=== PATIENT | female | born 1950 | race Caucasian/White ===

== ENCOUNTER 2016-05-29 10:43 | Inpatient (IN) | payer MEDICARE ==
[2016-05-29] MEDS ORDERED: SODIUM CHLORIDE 0.9% 10 ML FLUSH FLUSH PRN (11:04)
[2016-05-29 11:09] LABS: ABG Draw Site Right Radial; ABG Draw Tech SI; ALLEN'S TEST PASS; BEb -2.8 (+/- 2); TCO2 26.8 MMOL/L (23-27)
[2016-05-29 11:19] LABS: AUTOMATED BASOPHIL 0.8 % (0-2); AUTOMATED EOSINOPHIL 0.5 % (0-5); AUTOMATED LYMPH 10.7 % (17-44); AUTOMATED MONOCYTE 1.7 % (3-10); AUTOMATED NEUTROPHIL 86.3 % (45-76); MPV 10.1 fL (7.4-10.4)
[2016-05-29 11:27] LABS: BLOOD UREA NITROGEN 22 MG/DL (7-17); CALCIUM 9.1 MG/DL (8.4-10.2); CALCULATED OSMOLALITY 278 MOs/Kg (270-290); CHLORIDE 105 mEq/L (98-107); GLUCOSE 163 MG/DL (70-99); SODIUM LEVEL 141 mEq/L (137-146); TOTAL PROTEIN 7.9 G/DL (6.3-8.2)
--- NOTE | 2016-05-29 11:31 | EDPRACDOC ---
- General Information Information Source: Patient - History of Present Illness Onset: THIS AM Exact Onset of Symptoms: Unknown Symptoms began: At Night Duration: Since Onset Symptoms Currently: Reports: Still Present Altered Quality: Reports: Change in Behavior, Confusion Altered Severity: Reports: Unable to care for self Recent Symptoms of: Reports: None Relevant History: Reports: None Other History: PT PRESENTS TODAY WITH AMS. PT WITH DAUGHTER WHO PROVIDES MOST OF THE HISTORY BECAUSE ALL THE PT WILL STATE TO ME IS "I JUST CAN'T DO IT ANY MORE, I'M JUST SO WEAK". DAUGHTER STATES THAT PT WAS "JUST FINE" YESTERDAY AND THIS MORNING PT CALLED THE DAUGHTER WHO STATES PT WAS "JUST RAMBLING". DAUGHTER STATES PT HAS PMH OF CHF, HTN, 1 STENT. PT CURRENTLY ALERT, BUT SEEMS SOMEWHAT CONFUSED. <Hiwot Bunch - Last Filed: 05/29/16 12:27> <Oscar Bruce - Last Filed: 05/29/16 12:40> - General Information Chief Complaint: Altered Mental Status Stated Complaint: NAUSEA/ WEAKNESS Time Seen by Provider: 05/29/16 10:54 Home Medications: Home Medications Carvedilol [Coreg] 6.25 mg PO BID 10/28/14 Lisinopril [Zestril] 20 mg PO DAILY 10/28/14 Aspirin (Enteric Coated) [Halfprin] 81 mg PO DAILYWM #100 tablet 10/30/14 Apixaban [Eliquis] 2.5 mg PO BID 05/29/16 Furosemide [Lasix] 20 mg PO DAILY 05/29/16 POTASSIUM CHLORIDE Tablet [K-DUR 20 mEq Tablet*] 20 meq PO BID 05/29/16 Simvastatin 5 mg PO HS 05/29/16 Allergies/Adverse Reactions: Allergies Allergy/AdvReac Type Severity Reaction Status Date / Time No Known Allergies Allergy Verified 05/29/16 10:50 ED Past Medical History - History Reviewed Yes Nurses notes reviewed and agree except as marked - Patient Medical History Cardiac History: Reports: Atrial Fibrillation (History of.), Hypertension, Congestive Heart Failure, Cardiac Catheterization (stents x 2) Respiratory History: Reports: Pneumonia (Had pneumonia within the last 2 years.) Psychological History: Denies: Depression, Substance Use Disorder Systemic History: Denies: Anemia Surgical History: Reports: Cardiac Catheterization (stents x 2) - Family Medical History Reports: Hypertension (Brother, father), Cancer (Sister), Cardiac Disorders ( Father, brother) - Social Medical History Smoking Status: Heavy tobacco smoker (5 or more cigarettes/day or daily pipe/ cigar) Social History: Denies: Substance Use Disorder <Hiwot Bunch - Last Filed: 05/29/16 12:27> EDM Review of Systems - Review of Systems ROS Negative Except as Marked: Yes All systems reviewed and were negative except as marked ROS Unobtainable: Yes Review of systems cannot be obtained due to the patient's medical condition, Yes Hx Limited due to age/level of understanding of patient Constitutional: Fatigue, Weakness Respiratory: Shortness of Breath Cardiovascular: No Symptoms Reported Gastrointestinal: Nausea Genitourinary: No Symptoms Reported Neurological: Headache, Weakness, Memory Changes, Changes in Orientation Musculoskeletal: No Symptoms Reported Integumentary: No Symptoms Reported <iHwot Bunch - Last Filed: 05/29/16 12:27> - Physical Exam Constitutional: Alert, Confused Oriented to: Not Oriented Last recorded Vital Signs: Last Vital Signs Temp 97.4 F L 05/29/16 10:50 Pulse 95 05/29/16 10:50 Resp 18 05/29/16 11:00 BP 156/103 H 05/29/16 10:50 Pulse Ox 78 L 05/29/16 10:50 Oxygen Pulse Oxygen Saturation 78 O2 Device Oxygen Flow Rate Fraction of Inspired Oxygen ( FIO2) - HEENT Head: Normal Eye Exam: Normal Neck: Normal, Denies Pain, Midline - Respiratory/Cardiovascular Respiratory: Normal - CTA Cardiovascular: Normal - GI Palpation: Normal Tenderness: Non tender - Musculoskeletal Back: Normal Extremities: Normal - Integumentary Skin: Cool Lymphatics: Normal - Neurologic Cerebellar: Unable to Test <Hiwot Bunch - Last Filed: 05/29/16 12:27> - Physical Exam Last recorded Vital Signs: Last Vital Signs Temp 97.4 F L 05/29/16 10:50 Pulse 89 05/29/16 12:37 Resp 15 05/29/16 12:37 BP 154/110 H 05/29/16 12:37 Pulse Ox 91 05/29/16 12:37 Oxygen Pulse Oxygen Saturation 91 O2 Device BiPAP Oxygen Flow Rate Fraction of Inspired Oxygen ( 35 FIO2) <Oscar Bruce - Last Filed: 05/29/16 12:40> - Re-evaluation Re-evaluation 1 Re-evaluation Time: 11:44 DAUGHTER STATES THAT PT HAS WORSENED; CT MADE PRIORITY; PT MUMBLING INCOHERENTLY. - Results 05/29/16 10:55 05/29/16 10:55 WBC 10.2 xk/uL (3.8-10.8) 05/29/16 10:55 RBC 5.47 xM/uL (4.20-5.40) H 05/29/16 10:55 Hgb 16.3 g/dL (12.0-16.0) H 05/29/16 10:55 Hct 49.0 % (36-47) H 05/29/16 10:55 MCV 90 fL (81-99) 05/29/16 10:55 MCH 29.9 pg (27-32) 05/29/16 10:55 MCHC 33.4 g/dl (33-36) 05/29/16 10:55 RDW 13.9 % (11.5-14.5) 05/29/16 10:55 Plt Count 179 xk/uL (130-400) 05/29/16 10:55 MPV 10.1 fL (7.4-10.4) 05/29/16 10:55 Neut % (Auto) 86.3 % (45-76) H 05/29/16 10:55 Lymph % (Auto) 10.7 % (17-44) L 05/29/16 10:55 [place] % (Auto) 1.7 % (3-10) L 05/29/16 10:55 Eos % (Auto) 0.5 % (0-5) 05/29/16 10:55 Baso % (Auto) 0.8 % (0-2) 05/29/16 10:55 Absolute Neuts (auto) 8.77 xk/uL (1.7-8.2) H 05/29/16 10:55 Absolute Lymphs (auto) 1.02 xk/uL (0.65-4.75) 05/29/16 10:55 Puncture Site Right radial 05/29/16 11:04 pH 7.260 pH UNITS (7.35-7.45) L 05/29/16 11:04 pCO2 56.0 mmHg (35-45) H 05/29/16 11:04 pO2 42.0 mmHg (80-100) L* 05/29/16 11:04 HCO3 25.1 MMOL/L (22-26) 05/29/16 11:04 Total CO2 26.8 MMOL/L (23-27) 05/29/16 11:04 Base Excess -2.8 (+/- 2) L 05/29/16 11:04 FiO2 % 21% 05/29/16 11:04 Specimen Drawn By Si 05/29/16 11:04 Lab Results 05/29/16 05/29/16 11:04 10:55 WBC 10.2 RBC 5.47 H Hgb 16.3 H Hct 49.0 H MCV 90 MCH 29.9 MCHC 33.4 RDW 13.9 Plt Count 179 MPV 10.1 Neut % (Auto) 86.3 H Lymph % (Auto) 10.7 L [place] % (Auto) 1.7 L Eos % (Auto) 0.5 Baso % (Auto) 0.8 Absolute Neuts (auto) 8.77 H Absolute Lymphs (auto) 1.02 Puncture Site Right radial pH 7.260 L pCO2 56.0 H pO2 42.0 L* HCO3 25.1 Total CO2 26.8 Base Excess -2.8 L FiO2 % 21% Specimen Drawn By Si - EKG EKG #1 EKG Time: 10:58 -: Yes EKG interpreted by nj Rate: bpm: 84 Corder: Normal Rhythm: Afib Block: RBBB Hypertrophy: None ST: Normal <Hiwot Bunch - Last Filed: 05/29/16 12:27> - Results 05/29/16 10:55 05/29/16 10:55 WBC 10.2 xk/uL (3.8-10.8) 05/29/16 10:55 RBC 5.47 xM/uL (4.20-5.40) H 05/29/16 10:55 Hgb 16.3 g/dL (12.0-16.0) H 05/29/16 10:55 Hct 49.0 % (36-47) H 05/29/16 10:55 MCV 90 fL (81-99) 05/29/16 10:55 MCH 29.9 pg (27-32) 05/29/16 10:55 MCHC 33.4 g/dl (33-36) 05/29/16 10:55 RDW 13.9 % (11.5-14.5) 05/29/16 10:55 Plt Count 179 xk/uL (130-400) 05/29/16 10:55 MPV 10.1 fL (7.4-10.4) 05/29/16 10:55 Neut % (Auto) 86.3 % (45-76) H 05/29/16 10:55 Lymph % (Auto) 10.7 % (17-44) L 05/29/16 10:55 [place] % (Auto) 1.7 % (3-10) L 05/29/16 10:55 Eos % (Auto) 0.5 % (0-5) 05/29/16 10:55 Baso % (Auto) 0.8 % (0-2) 05/29/16 10:55 Absolute Neuts (auto) 8.77 xk/uL (1.7-8.2) H 05/29/16 10:55 Absolute Lymphs (auto) 1.02 xk/uL (0.65-4.75) 05/29/16 10:55 PT 11.2 SEC (9.2-11.2) 05/29/16 10:55 INR 1.1 05/29/16 10:55 APTT 24.6 SEC (22-35) 05/29/16 10:55 Puncture Site Right radial 05/29/16 11:04 pH 7.260 pH UNITS (7.35-7.45) L 05/29/16 11:04 pCO2 56.0 mmHg (35-45) H 05/29/16 11:04 pO2 42.0 mmHg (80-100) L* 05/29/16 11:04 HCO3 25.1 MMOL/L (22-26) 05/29/16 11:04 Total CO2 26.8 MMOL/L (23-27) 05/29/16 11:04 Base Excess -2.8 (+/- 2) L 05/29/16 11:04 FiO2 % 21% 05/29/16 11:04 Specimen Drawn By Si 05/29/16 11:04 Sodium 141 mEq/L (137-146) 05/29/16 10:55 Potassium 4.3 mEq/L (3.5-5.1) 05/29/16 10:55 Chloride 105 mEq/L (98-107) 05/29/16 10:55 Carbon Dioxide 27 mMOL/L (22-33) 05/29/16 10:55 Anion Gap 13 mEq/L (8-16) 05/29/16 10:55 BUN 22 MG/DL (7-17) H 05/29/16 10:55 Creatinine 1.00 MG/DL (0.52-1.04) 05/29/16 10:55 Estimated GFR (MDRD) 55 mL/min (>=60) L 05/29/16 10:55 Glucose 163 MG/DL (70-99) H 05/29/16 10:55 Calculated Osmolality 278 MOs/Kg (270-290) 05/29/16 10:55 Lactic Acid 0.7 mEq/L (0.7-2.1) 05/29/16 10:55 Calcium 9.1 MG/DL (8.4-10.2) 05/29/16 10:55 Total Bilirubin 1.6 MG/DL (0.2-1.3) H 05/29/16 10:55 AST 52 IU/L (14-36) H 05/29/16 10:55 ALT 47 IU/L (9-52) 05/29/16 10:55 Alkaline Phosphatase 81 IU/L (55-165) 05/29/16 10:55 Troponin I < 0.01 ng/mL (<.04) 05/29/16 10:55 Hcr-C-Qcpxvqlrpte Pept 4330 pg/mL (0-900) H 05/29/16 10:55 Total Protein 7.9 G/DL (6.3-8.2) 05/29/16 10:55 Albumin 4.3 G/DL (3.5-5.0) 05/29/16 10:55 Lab Results 05/29/16 05/29/16 05/29/16 11:04 10:55 10:55 WBC RBC Hgb Hct MCV MCH MCHC RDW Plt Count MPV Neut % (Auto) Lymph % (Auto) [place] % (Auto) Eos % (Auto) Baso % (Auto) Absolute Neuts (auto) Absolute Lymphs (auto) PT INR APTT Puncture Site Right radial pH 7.260 L pCO2 56.0 H pO2 42.0 L* HCO3 25.1 Total CO2 26.8 Base Excess -2.8 L FiO2 % 21% Specimen Drawn By Si Sodium Potassium Chloride Carbon Dioxide Anion Gap BUN Creatinine Estimated GFR (MDRD) Glucose Calculated Osmolality Lactic Acid 0.7 Calcium Total Bilirubin AST ALT Alkaline Phosphatase Troponin I Cvn-K-Rpnuzenzujj Pept 4330 H Total Protein Albumin 05/29/16 05/29/16 05/29/16 10:55 10:55 10:55 WBC 10.2 RBC 5.47 H Hgb 16.3 H Hct 49.0 H MCV 90 MCH 29.9 MCHC 33.4 RDW 13.9 Plt Count 179 MPV 10.1 Neut % (Auto) 86.3 H Lymph % (Auto) 10.7 L [place] % (Auto) 1.7 L Eos % (Auto) 0.5 Baso % (Auto) 0.8 Absolute Neuts (auto) 8.77 H Absolute Lymphs (auto) 1.02 PT 11.2 INR 1.1 APTT 24.6 Puncture Site pH pCO2 pO2 HCO3 Total CO2 Base Excess FiO2 % Specimen Drawn By Sodium 141 Potassium 4.3 Chloride 105 Carbon Dioxide 27 Anion Gap 13 BUN 22 H Creatinine 1.00 Estimated GFR (MDRD) 55 L Glucose 163 H Calculated Osmolality 278 Lactic Acid Calcium 9.1 Total Bilirubin 1.6 H AST 52 H ALT 47 Alkaline Phosphatase 81 Troponin I < 0.01 Hme-S-Dfgrtkgpana Pept Total Protein 7.9 Albumin 4.3 <Oscar Bruce - Last Filed: 05/29/16 12:40> - Departure Disposition: Admit IP To This Hospital <Hiwot Bunch - Last Filed: 05/29/16 12:27> - Departure Yes I personally saw and evaluated the patient. Disposition: Admit IP To This Hospital Decision to Admit Time: 12:40 Decision to admit date: 05/29/16 Decision to admit: from ED - Physician Consulted Hospitalist Time Called: 12:40 Provider Called: Dima Haider Time Auto Custom[employer] Painter Returned Call: 12:40 <Oscar Bruce - Last Filed: 05/29/16 12:40> - Departure Condition: Fair Final Diagnosis: Altered mental status, COPD with exacerbation CHF (congestive heart failure) Qualifiers: Congestive heart failure type: combined Congestive heart failure chronicity: acute on chronic Qualified Code(s): I50.43 - Acute on chronic combined systolic (congestive) and diastolic (congestive) heart failure Respiratory failure Qualifiers: Chronicity: acute Respiratory failure complication: hypoxia and hypercapnia Qualified Code(s): J96.01 - Acute respiratory failure with hypoxia
[2016-05-29 11:36] LABS: PARTIAL THROMB. TIME 24.6 SEC (22-35); PT-INR 1.1
[2016-05-29] MEDS ORDERED: ONDANSETRON HCL 4 MG/2 ML VIAL IV ONE (11:38)
--- NOTE | 2016-05-29 12:01 | DIRPT ---
CLINICAL DATA: Altered mental status for 1 day. History of previous CVA, per patient. EXAM: CT HEAD WITHOUT CONTRAST TECHNIQUE: Contiguous axial images were obtained from the base of the skull through the vertex without intravenous contrast. COMPARISON: None. FINDINGS: There is generalized brain atrophy with commensurate dilatation of the ventricles and sulci. Patchy areas of low density within the bilateral periventricular and subcortical white matter regions are most compatible with sequela of chronic small vessel ischemia. Old infarcts noted within the bilateral lower occipital lobe regions with associated encephalomalacia. There is no mass, hemorrhage, edema or other evidence of acute parenchymal abnormality. No extra-axial hemorrhage. No osseous abnormality seen. Visualized upper paranasal sinuses are clear. Mastoid air cells are clear. There are chronic calcified atherosclerotic changes of the large vessels at the skull base. Superficial soft tissues are unremarkable. IMPRESSION: 1. Atrophy and chronic ischemic changes, as detailed above. 2. No evidence of acute intracranial abnormality. No intracranial mass, hemorrhage or edema. Electronically Signed By: Jeison Ramirez M.D. On: 05/29/2016 11:59
[2016-05-29] MEDS ORDERED: FUROSEMIDE 40 MG/4 ML VIAL IV ONE (12:05)
[2016-05-29] MEDS ORDERED: MORPHINE 4 MG/ML INJECTION IV ONE (12:05)
[2016-05-29] MEDS ORDERED: METHYLPREDNISOLONE 125 MG/2 ML VIAL IV ONE (12:05)
--- NOTE | 2016-05-29 12:31 | DIRPT ---
CLINICAL DATA: Patient with chest pain. Nausea. EXAM: PORTABLE CHEST 1 VIEW COMPARISON: Chest radiograph 02/04/2015. FINDINGS: Monitoring leads overlie the patient. Stable cardiomegaly. Interval development of bilateral interstitial pulmonary opacities. No pleural effusion or pneumothorax. IMPRESSION: Cardiomegaly and mild interstitial pulmonary edema. Electronically Signed By: Greg Bhakta M.D. On: 05/29/2016 12:28
[2016-05-29] MEDS ORDERED: DOCUSATE-SENNA CONCENTRATE TAB PO PRN (14:00)
[2016-05-29] MEDS ORDERED: D5-1/2NS/KCL 20 mEq 1,000 ML IV SCH (14:00)
[2016-05-29] MEDS ORDERED: BENZONATATE 100 MG PERLES PO PRN (14:00)
[2016-05-29] MEDS ORDERED: MORPHINE 2 MG/ML INJECTION IV PRN (14:00)
[2016-05-29] MEDS ORDERED: NITROGLYCERINE 0.4 MG TAB SL PRN (14:00)
[2016-05-29] MEDS ORDERED: PROMETHAZINE 25 MG/ML VIAL IV PRN (14:00)
[2016-05-29] MEDS ORDERED: ACETAMINOPHEN 650 MG SUPP PR PRN (14:00)
[2016-05-29] MEDS ORDERED: BISACODYL 10 MG SUPP PR PRN (14:00)
[2016-05-29] MEDS ORDERED: SIMETHICONE 80 MG TAB PO PRN (14:00)
[2016-05-29] MEDS ORDERED: Albuterol/Ipratropium Neb 3 ML NEB NEB PRN (14:00)
[2016-05-29] MEDS ORDERED: GUAIFENESIN 200 MG/10 ML UDC PO PRN (14:00)
[2016-05-29] MEDS ORDERED: Pharmacy Order Set Alert SCH (14:00)
[2016-05-29] MEDS ORDERED: ENALAPRILAT 1.25 MG/ML VIAL IV PRN (14:13)
[2016-05-29 14:17] LABS: ALL NEG? NO
--- NOTE | 2016-05-29 14:19 | HISTPHYS ---
- Medical History Cardiac History: Reports: Atrial Fibrillation (History of.), Hypertension, Congestive Heart Failure, Cardiac Catheterization (stents x 2) Respiratory History: Reports: Pneumonia (Had pneumonia within the last 2 years.) Systemic History: Denies: Anemia Psychological History: Denies: Depression, Substance Use Disorder - Surgical History Reports: Cardiac Catheterization (stents x 2) - Medictions/Allergies Allergies lorazepam [From Ativan] Allergy (Verified 05/29/16 14:18) Agitation Home Medications Carvedilol [Coreg] 6.25 mg PO BID 10/28/14 Lisinopril [Zestril] 20 mg PO DAILY 10/28/14 Aspirin (Enteric Coated) [Halfprin] 81 mg PO DAILYWM #100 tablet 10/30/14 Apixaban [Eliquis] 2.5 mg PO BID 05/29/16 Furosemide [Lasix] 20 mg PO DAILY 05/29/16 POTASSIUM CHLORIDE Tablet [K-DUR 20 mEq Tablet*] 20 meq PO BID 05/29/16 Simvastatin 5 mg PO HS 05/29/16 - Family History Reports: Hypertension (Brother, father), Cancer (Sister), Cardiac Disorders ( Father, brother) - Social History Smoking Status: Heavy tobacco smoker (5 or more cigarettes/day or daily pipe/ cigar) Social History: Denies: Substance Use Disorder - Physical Exam Vital Signs: Initial Vitals Temperature 97.4 F L 05/29/16 10:50 Pulse Rate 95 05/29/16 10:50 Respiratory Rate 22 05/29/16 10:50 Blood Pressure 156/103 H 05/29/16 10:50 Pulse Oxygen Saturation 78 L 05/29/16 10:50 - Focused CV Perfusion Exam Vital Signs: Last Vital Signs Temp 97.4 F L 05/29/16 10:50 Pulse 89 05/29/16 12:37 Resp 15 05/29/16 12:37 BP 154/110 H 05/29/16 12:37 Pulse Ox 91 05/29/16 12:37
[2016-05-29 14:32] LABS: MDMA* NEG (NEGATIVE); METHAMPHETAMINES NEG (NEGATIVE); OXYCODONE NEG (NEGATIVE)
[2016-05-29 14:37] LABS: LEUKOCYTES/URINE NEG (NEGATIVE); NITRITE/URINE NEG (NEGATIVE); RBC/URINE 0-2 (0-5); URINE OCCULT BLOOD 1+ (NEG/TRACE); WBC/URINE 0-2 (0-5)
[2016-05-29] MEDS ORDERED: ENOXAPARIN 80 MG/0.8 ML PFS SQ SCH (15:00)
[2016-05-29] MEDS ORDERED: Pharmacy Review for Metformin - IV Contrast Given SCH ×2 (15:00→20:00)
[2016-05-29] MEDS ORDERED: Enoxaparin 1 mg per kg per dose SQ SCH (15:00)
[2016-05-29] MEDS: FUROSEMIDE 40 MG/4 ML VIAL IV SCH (15:29)
[2016-05-29] MEDS: NICOTINE 21 MG PATCH TOP SCH (15:29)
[2016-05-29] MEDS: Albuterol/Ipratropium Neb 3 ML NEB NEB SCH ×2 (15:32→19:28)
[2016-05-29] MEDS: METOPROLOL 5 MG/5 ML SDV IV SCH ×2 (17:07→23:05)
[2016-05-29] MEDS: D5-1/2NS/KCL 20 mEq 1,000 ML IV SCH (17:07)
[2016-05-29] MEDS ORDERED: Vaccine Screening Complete SCH (18:00)
[2016-05-29] MEDS: ONDANSETRON HCL 4 MG/2 ML VIAL IV PRN (18:33)
--- NOTE | 2016-05-29 19:15 | HISTPHYS ---
- Chief Complaint Altered mental status - History of Present Illness The patient is a 65-year-old white female with a history of coronary artery disease AFib hypertension and ongoing smoking who was last seen on the night prior to admission. She was at her usual state of health at that time. On the morning of admission the patient is daughter states that the patient called her by telephone but was babbling incoherently. She went her mother's house which is right next door and her mother was dressed but very confused. Most of what she said did not make sense. She has had no recent illness or shortness of breath. Patient's daughter states that the patient looked flu-like, although she has had no recent illness or fever. On arrival in the emergency department the patient's ABG showed a PO2 of 42 and sats were 78% on room air. We rest see the patient for respiratory failure unknown etiology. - Medical History Cardiac History: Reports: Atrial Fibrillation (History of.), Hypertension, Congestive Heart Failure, Cardiac Catheterization (stents x 2), Hypercholesterolemia Respiratory History: Reports: Pneumonia (Had pneumonia within the last 2 years.) GI/ History: Reports: Gastroesophageal Reflux (h/o H pylori) Musculoskeletal History: Reports: No Significant History Systemic History: Denies: Anemia, Diabetes, Hypothyroidism Neurological History: Denies: Seizures, Dementia Psychological History: Denies: Depression, Substance Use Disorder - Surgical History Reports: Cardiac Catheterization (stents x 2) - Medictions/Allergies Allergies lorazepam [From Ativan] Allergy (Verified 05/29/16 14:18) Agitation Current Medication List: Reviewed Home Medications Carvedilol [Coreg] 6.25 mg PO BID 10/28/14 Lisinopril [Zestril] 20 mg PO DAILY 10/28/14 Aspirin (Enteric Coated) [Halfprin] 81 mg PO DAILYWM #100 tablet 10/30/14 Apixaban [Eliquis] 2.5 mg PO BID 05/29/16 Furosemide [Lasix] 20 mg PO DAILY 05/29/16 POTASSIUM CHLORIDE Tablet [K-DUR 20 mEq Tablet*] 20 meq PO BID 05/29/16 Simvastatin 5 mg PO HS 05/29/16 - Family History Reports: Hypertension (Brother, father), Cancer (Sister), Cardiac Disorders ( Father, brother) - Social History Travel Outside of [place] in the Last 3 Months?: No Lives: Alone (daughter lives next door) Smoking Status: Heavy tobacco smoker (5 or more cigarettes/day or daily pipe/ cigar) Social History: Denies: Alcohol Use, Substance Use Disorder - Review of Systems Yes Review of systems cannot be obtained due to the patient's medical condition (Information marked is from daughter) Constitutional: negative: Chills, Fever, Fatigue, Weight loss Eyes: negative: Blurred Vision Ears: No Symptoms Reported Nose: No Symptoms Reported Mouth: No Symptoms Reported Throat/Neck: No Symptoms Reported Respiratory: No Symptoms Reported. negative: Shortness of Breath Cardiovascular: No Symptoms Reported Gastrointestinal: Nausea (reported today.), Abdominal Pain (at times per daughter) Genitourinary: No Symptoms Reported Neurological: Other (chronic sleep problem). negative: Dizziness, Gait Difficulty, Headache Musculoskeletal:: No Symptoms Reported Integumentary: No Symptoms Reported Allergic/Immunologic: No Symptoms Reported Hematologic: No Symptoms Reported Endocrine: No Symptoms Reported Psychiatric: No Symptoms Reported - Physical Exam Vital Signs: Initial Vitals Temperature 97.4 F L 05/29/16 10:50 Pulse Rate 95 05/29/16 10:50 Respiratory Rate 22 05/29/16 10:50 Blood Pressure 156/103 H 05/29/16 10:50 Pulse Oxygen Saturation 78 L 05/29/16 10:50 Constitutional: Decreased Consciousness (opens eyes and answers questions then goes back to sleep.) Oriented to: Person - HEENT Head: Normal. negative: Abrasion, Laceration Eye: negative: Conjunctival Injection, Scleral Icterus Oropharynx: Other (unable to evaluate due to bipap) Tympanic Membrane: Normal ENT EAC: Other (unable to evaluate due to bipap) Nose: Other (unable to evaluate due to bipap) Respiratory: Rales (faint), Excursion (decreased) Cardiovascular: Irregular - GI Auscultation: Normal Palpation: Normal. negative: Enlarged liver, Enlarged spleen Tenderness: Non tender Rectal Exam: Deferred - Exam Deferred: Yes - Musculoskeletal Back: negative: CVA Tenderness Extremities: Clubbing (mild in fingers) Spine: non-tender - Integumentary Skin: Warm, Dry Lymphatics: negative: Cervical Adenopathy, Supraclavicular Adenopathy - Neurologic Memory Impaired: Unable to Test Motor Function: Normal (she will move upper and lower extremities on command) Cranial Nerve: Unable to Test Cerebellar: Unable to Test Mood Description: Agitated Thought: Other (unable to test due to bipap.) - Focused CV Perfusion Exam Vital Signs: Last Vital Signs Temp 96.3 F L 05/29/16 16:36 Pulse 100 05/29/16 17:54 Resp 18 05/29/16 16:36 BP 141/100 05/29/16 16:36 Pulse Ox 94 05/29/16 16:36 - Lab Results Laboratory Tests 05/29/16 05/29/16 05/29/16 10:55 10:55 10:55 WBC 10.2 RBC 5.47 H Hgb 16.3 H Hct 49.0 H MCV 90 Neut % (Auto) 86.3 H Lymph % (Auto) 10.7 L [place] % (Auto) 1.7 L PT 11.2 INR 1.1 APTT 24.6 Puncture Site pH pCO2 pO2 HCO3 Total CO2 Base Excess FiO2 % Sodium 141 Potassium 4.3 Chloride 105 Carbon Dioxide 27 Anion Gap 13 BUN 22 H Creatinine 1.00 Estimated GFR (MDRD) 55 L Glucose 163 H Calculated Osmolality 278 Lactic Acid Calcium 9.1 Total Bilirubin 1.6 H AST 52 H ALT 47 Alkaline Phosphatase 81 Troponin I < 0.01 Fmh-Y-Jmxhmmejeqj Pept Total Protein 7.9 Albumin 4.3 05/29/16 05/29/16 05/29/16 10:55 10:55 11:04 WBC RBC Hgb Hct MCV Neut % (Auto) Lymph % (Auto) [place] % (Auto) PT INR APTT Puncture Site Right radial pH 7.260 L pCO2 56.0 H pO2 42.0 L* HCO3 25.1 Total CO2 26.8 Base Excess -2.8 L FiO2 % 21% Sodium Potassium Chloride Carbon Dioxide Anion Gap BUN Creatinine Estimated GFR (MDRD) Glucose Calculated Osmolality Lactic Acid 0.7 Calcium Total Bilirubin AST ALT Alkaline Phosphatase Troponin I Nub-Q-Uleecdfbvyh Pept 4330 H Total Protein Albumin - Diagnostic Findings Exam(s): [id number] RAD/DG CHEST PORTABLE CLINICAL DATA: Patient with chest pain. Nausea. EXAM: PORTABLE CHEST 1 VIEW COMPARISON: Chest radiograph 02/04/2015. FINDINGS: Monitoring leads overlie the patient. Stable cardiomegaly. Interval development of bilateral interstitial pulmonary opacities. No pleural effusion or pneumothorax. IMPRESSION: Cardiomegaly and mild interstitial pulmonary edema. Electronically Signed By: Greg Yony M.D. Non contrast head CT showed atrophy and ischemic change but no acute intracranial abnormality - Assessment (1) Respiratory failure with hypoxia J96.91 - RESPIRATORY FAILURE, UNSPECIFIED WITH HYPOXIA Acute Present on Admission: Yes Qualifiers: Chronicity: acute on chronic Qualified Code(s): J96.21 - Acute and chronic respiratory failure with hypoxia This is sudden onset for this patient. She will have cardiac enzymes drawn. She has been placed on BiPAP. Blood cultures and urine cultures have been obtained. IV antibiotics were given for presumptive diagnosis of pneumonia. IV steroids. Two sets of troponins have been done. I have ordered a CTA of her chest to evaluate for PE although she is on Eliquis. (2) Altered mental status R41.82 - ALTERED MENTAL STATUS, UNSPECIFIED Acute Present on Admission: Yes Likely due to extreme hypoxia. No history of psychiatric illness. (3) COPD with exacerbation J44.1 - CHRONIC OBSTRUCTIVE PULMONARY DISEASE W (ACUTE) EXACERBATION Acute Present on Admission: Yes supplemental oxygen, nebulized medications, steroids. (4) Acute on chronic systolic and diastolic heart failure, NYHA class 1 I50.43 - ACUTE ON CHRONIC COMBINED SYSTOLIC AND DIASTOLIC HRT FAIL Acute Echocardiogram from 2015 shows ejection fraction 35% with apical hypokinesia. CXR today shows interstitial edema. BNP =4300 but this is less than 8[address]89 in 2015 when she was admitted with CHF. Will check cardiac enzymes, continue IV lasix , IV metoprolol while she is in bipap. restart outpt medications when possible. Follow BNP (5) Atrial fibrillation with RVR I48.91 - UNSPECIFIED ATRIAL FIBRILLATION Acute HR is now approx 100. If incresing, will add cardizem drip. Use full dose lovenox for now while she is not able to take oral meds. restart eliquis when able to tolerate po. (6) Essential hypertension I10 - ESSENTIAL (PRIMARY) HYPERTENSION Acute Use home meds when she is able to take po. (7) Coronary artery disease I25.10 - ATHSCL HEART DISEASE OF [place] CORONARY ARTERY W/O ANG PCTRS Chronic Qualifiers: Coronary Disease-Associated Artery/Lesion type: [place] coronary artery [place] vs. transplanted heart: [place] heart check cardiac enzymes. use home meds when able. (8) Tobacco abuse Z72.0 - TOBACCO USE Acute Present on Admission: Yes nicotine patch for now. When able, offer tobacco abiuse counselling. Case Care Discussed with: Family, Respiratory Therapy Total Time: 60 min Critical Care: No Couseling Time (>50% in counseling/coordination): No Code: 64342
[2016-05-30] MEDS ORDERED: DIPHENHYDRAMINE 25 MG CAP PO ONE (00:38)
[2016-05-30] MEDS: FUROSEMIDE 40 MG/4 ML VIAL IV SCH ×2 (01:19→11:40)
[2016-05-30] MEDS: Albuterol/Ipratropium Neb 3 ML NEB NEB SCH ×4 (01:49→19:20)
[2016-05-30] MEDS: ENOXAPARIN 80 MG/0.8 ML PFS SQ SCH ×2 (04:41→16:50)
[2016-05-30] MEDS: METOPROLOL 5 MG/5 ML SDV IV SCH ×3 (04:41→16:50)
--- NOTE | 2016-05-30 07:59 | DIRPT ---
CLINICAL DATA: 65-year-old female with chest pain and vomiting. Follow-up pulmonary edema. Subsequent encounter. EXAM: PORTABLE CHEST 1 VIEW COMPARISON: 05/29/2016 and 02/04/2015 chest x-ray FINDINGS: Decrease in degree of peripheral pulmonary vascular congestion. Central pulmonary vascular prominence similar to remote exam. Cardiomegaly. Moderately tortuous partially calcified aorta. No gross pneumothorax. IMPRESSION: Decrease in degree of peripheral pulmonary vascular congestion. Central pulmonary vascular prominence similar to remote exam. Cardiomegaly. Moderately tortuous partially calcified aorta. Electronically Signed By: Job Saeed M.D. On: 05/30/2016 07:56
[2016-05-30] MEDS ORDERED: FLU VACCINE (Afluria) 0.5 ML DOSE IM ONE (08:00)
--- NOTE | 2016-05-30 08:31 | DIRPT ---
CLINICAL DATA: 65-year-old female with hypoxia for 3 days. Initial encounter. EXAM: CT ANGIOGRAPHY CHEST WITH CONTRAST TECHNIQUE: Multidetector CT imaging of the chest was performed using the standard protocol during bolus administration of intravenous contrast. Multiplanar CT image reconstructions and MIPs were obtained to evaluate the vascular anatomy. CONTRAST: 80 mL Isovue 370 COMPARISON: Portable chest radiographs 0554 hours today and earlier FINDINGS: Good contrast bolus timing in the pulmonary arterial tree. Mild respiratory motion. Venous contrast reflux into the dependent hepatic veins and IVC. No focal filling defect identified in the pulmonary arterial tree to suggest the presence of acute pulmonary embolism. Cardiomegaly. Aortic and coronary artery calcified atherosclerosis. No pericardial effusion. Little to no contrast in the aorta on this exam. No mediastinal or hilar lymphadenopathy. Major airways are patent aside from atelectatic changes. No pleural effusion. No consolidation. Mild mosaic attenuation in both lungs with lower lobe predominance. No axillary lymphadenopathy. Partially calcified 2.3 cm left thyroid nodule. Negative visualized noncontrast liver, gallbladder, spleen, pancreas, adrenal glands, kidneys, and bowel in the upper abdomen. Osteopenia. No acute osseous abnormality identified. Review of the MIP images confirms the above findings. IMPRESSION: 1. No evidence of acute pulmonary embolus. 2. Cardiomegaly. Dependent venous contrast reflux into the liver and IVC suggesting a degree of right heart failure. 3. Calcified aortic and coronary atherosclerosis. 4. No definite acute pulmonary process. Mild mosaic attenuation suggesting chronic small airways or pulmonary small vessel disease. 5. 2.3 cm left thyroid nodule meets consensus criteria for outpatient follow-up thyroid ultrasound. Electronically Signed By: Mariusz Yun M.D. On: 05/30/2016 08:28
[2016-05-30 10:58] LABS: ALLEN'S TEST PASS; BEb 5.9 (+/- 2); TCO2 30.9 MMOL/L (23-27)
[2016-05-30 10:59] LABS: ABG Draw Site Right Radial
[2016-05-30] MEDS: ONDANSETRON HCL 4 MG/2 ML VIAL IV PRN (11:39)
[2016-05-30] MEDS: NICOTINE 21 MG PATCH TOP SCH (16:50)
[2016-05-30] MEDS: D5-1/2NS/KCL 20 mEq 1,000 ML IV SCH ×2 (16:59→20:28)
--- NOTE | 2016-05-30 17:24 | GENMEDPROG ---
Subjective Note: She 5-year-old female admitted with pneumonia and right-sided heart failure. She is awake and alert and answering questions appropriately. Her daughter states that she is confused. I have answered all of her questions. Notes Reviewed: Yes Events from last night noted and discussed with Clinical Staff Current Medication List: Reviewed Currently: Reports: Wheezing, SOB DVT Prophylaxis: Yes - Physical Examination Vital Signs and I&O: Last Vital Signs Temp 99.0 F 05/30/16 15:55 Pulse 86 05/30/16 15:55 Resp 18 05/30/16 15:55 BP 138/90 05/30/16 15:55 Pulse Ox 94 05/30/16 15:55 Oxygen Pulse Oxygen Saturation 94 O2 Device Room Air Oxygen Flow Rate 2 Fraction of Inspired Oxygen ( 35 FIO2) Intake & Output 05/27/16 05/28/16 05/29/16 05/30/16 23:59 23:59 23:59 23:59 Intake Total 300 1041 Output Total 1350 2425 Balance -1050 -1384 Patient's weight 68.311 kg 67.857 kg General: Alert, Oriented x3, No acute distress, Well appearing, Well nourished HEENT: Normal (Normocephalic, atraumatic;EOMI.Sclera white, Nares patent, without discharge or bleeding. No oropharyngeal lesions or erythema. Mucous membranes are dry.) Neck: Non-tender, Full range of motion, Normal Trachea alignment, Normal inspection (No cervical lymphadenopathy. No supraclavicular lymphadenopathy.), No Masses palpable, Supple Lymphatics: negative: Cervical Adenopathy, Supraclavicular Adenopathy Respiratory: Rales (faint), Excursion (decreased) Cardiovascular: Regular rate and rhythm (No bradycardia or tachycardia), Normal S1, No Gallops,Rubs/Murmurs, Normal S2, Good Pedal Pulses (DP pulses 2+ bilaterally) GI: Normal bowel sounds (normal active sounds), Soft (non-distended), Non tender , No hepatospenomegaly, No masses Extremities/Musculoskeletal: Normal pulses (DP pulses 2+ bilaterally) Skin: Warm,Dry and Intact, No rashes, No significant lesion Neurological: Strength at 5/5 X4 ext (Motor 5/5 throughout.), Normal tone, Cranial nerves 3-12 NL ( 2-12 grossly intact.) Psych/Mental Status: Confused (Per daughter) Lab/DI/Studies Reviewed: Abnormal Lab Results 05/30/16 10:52 pH 7.490 H pO2 72.0 L HCO3 29.7 H Total CO2 30.9 H Base Excess 5.9 H PORTABLE CHEST 1 VIEW COMPARISON: 05/29/2016 and 02/04/2015 chest x-ray FINDINGS: Decrease in degree of peripheral pulmonary vascular congestion. Central pulmonary vascular prominence similar to remote exam. Cardiomegaly. Moderately tortuous partially calcified aorta. No gross pneumothorax. IMPRESSION: Decrease in degree of peripheral pulmonary vascular congestion. Central pulmonary vascular prominence similar to remote exam. Cardiomegaly. Moderately tortuous partially calcified aorta. Electronically Signed By: Job Saeed M.D. On: 05/30/2016 07:56 EXAM: CT ANGIOGRAPHY CHEST WITH CONTRAST TECHNIQUE: Multidetector CT imaging of the chest was performed using the standard protocol during bolus administration of intravenous contrast. Multiplanar CT image reconstructions and MIPs were obtained to evaluate the vascular anatomy. CONTRAST: 80 mL Isovue 370 COMPARISON: Portable chest radiographs 0554 hours today and earlier FINDINGS: Good contrast bolus timing in the pulmonary arterial tree. Mild respiratory motion. Venous contrast reflux into the dependent hepatic veins and IVC. No focal filling defect identified in the pulmonary arterial tree to suggest the presence of acute pulmonary embolism. Cardiomegaly. Aortic and coronary artery calcified atherosclerosis. No pericardial effusion. Little to no contrast in the aorta on this exam. No mediastinal or hilar lymphadenopathy. Major airways are patent aside from atelectatic changes. No pleural effusion. No consolidation. Mild mosaic attenuation in both lungs with lower lobe predominance. No axillary lymphadenopathy. Partially calcified 2.3 cm left thyroid nodule. Negative visualized noncontrast liver, gallbladder, spleen, pancreas, adrenal glands, kidneys, and bowel in the upper abdomen. Osteopenia. No acute osseous abnormality identified. Review of the MIP images confirms the above findings. IMPRESSION: 1. No evidence of acute pulmonary embolus. 2. Cardiomegaly. Dependent venous contrast reflux into the liver and IVC suggesting a degree of right heart failure. 3. Calcified aortic and coronary atherosclerosis. 4. No definite acute pulmonary process. Mild mosaic attenuation suggesting chronic small airways or pulmonary small vessel disease. 5. 2.3 cm left thyroid nodule meets consensus criteria for outpatient follow-up thyroid ultrasound. Electronically Signed By: Mariusz Yun M.D. On: 05/30/2016 08:28 - Assessment (1) Respiratory failure with hypoxia Acute J96.91 - RESPIRATORY FAILURE, UNSPECIFIED WITH HYPOXIA Qualifiers: Chronicity: acute on chronic Qualified Code(s): J96.21 - Acute and chronic respiratory failure with hypoxia Comment/Plan: This appears like sudden pulmonary edema which is often common in patients with heart failure coronary disease. She does have evidence for pneumonia on CT scan. Continue present care and check an echocardiogram. (2) Altered mental status Acute R41.82 - ALTERED MENTAL STATUS, UNSPECIFIED Comment/Plan: Likely due to extreme hypoxia. No history of psychiatric illness. Seems more like toxic metabolic encephalopathy that will require some time to improve. (3) COPD with exacerbation Acute J44.1 - CHRONIC OBSTRUCTIVE PULMONARY DISEASE W (ACUTE) EXACERBATION Comment/Plan: supplemental oxygen, nebulized medications, steroids. (4) Acute on chronic systolic and diastolic heart failure, NYHA class 1 Acute I50.43 - ACUTE ON CHRONIC COMBINED SYSTOLIC AND DIASTOLIC HRT FAIL Comment/Plan: Check echocardiogram continue present care. (5) Atrial fibrillation with RVR Acute I48.91 - UNSPECIFIED ATRIAL FIBRILLATION Comment/Plan: Continue present care. (6) Essential hypertension Acute I10 - ESSENTIAL (PRIMARY) HYPERTENSION Comment/Plan: Use home meds when she is able to take po. (7) Coronary artery disease Chronic I25.10 - ATHSCL HEART DISEASE OF [place] CORONARY ARTERY W/O ANG PCTRS Qualifiers: Coronary Disease-Associated Artery/Lesion type: [place] coronary artery [place] vs. transplanted heart: [place] heart Comment/Plan: check cardiac enzymes. use home meds when able. (8) Tobacco abuse Acute Z72.0 - TOBACCO USE Comment/Plan: nicotine patch for now. When able, offer tobacco abiuse counselling. - Plan Patient has refused to wear her BiPAP today and daughter has concerns about her continued confusion. Although the patient is awake and alert will check a blood gas to rule out hypercarbia as cause of confusion. I have also held her Phenergan and pain medications. We are going to discontinue her Goss and we are going to start clear liquids advance as tolerated. Please note I have consulted Cardiology. Case Care Discussed with: Patient, Family, Nursing Staff Education/Counseling Given To: Patient, Family Member Education/Counseling Given Regarding: Diagnosis, Treatment, Prognosis, Follow Up , Disposition Plan Total Time: 45 min Critical Care: No Couseling Time (>50% in counseling/coordination): No
[2016-05-30 17:41] LABS: ABG Draw Site Right Radial; ALLEN'S TEST PASS; TCO2 32.6 MMOL/L (23-27)
[2016-05-31] MEDS: METOPROLOL 5 MG/5 ML SDV IV SCH ×4 (00:26→18:34)
[2016-05-31] MEDS: FUROSEMIDE 40 MG/4 ML VIAL IV SCH ×2 (00:28→13:24)
[2016-05-31] MEDS: Albuterol/Ipratropium Neb 3 ML NEB NEB SCH ×4 (01:30→19:44)
[2016-05-31 04:05] VITALS: BMI 24.7
[2016-05-31] MEDS: ENOXAPARIN 80 MG/0.8 ML PFS SQ SCH ×2 (05:40→18:34)
[2016-05-31] MEDS: D5-1/2NS/KCL 20 mEq 1,000 ML IV SCH (09:03)
[2016-05-31 09:19] LABS: AUTOMATED BASOPHIL 0.5 % (0-2); AUTOMATED LYMPH 11.3 % (17-44); AUTOMATED MONOCYTE 5.1 % (3-10); AUTOMATED NEUTROPHIL 83.1 % (45-76); MPV 10.8 fL (7.4-10.4)
[2016-05-31 09:33] LABS: BLOOD UREA NITROGEN 26 MG/DL (7-17); CALCIUM 9.6 MG/DL (8.4-10.2); CALCULATED OSMOLALITY 277 MOs/Kg (270-290); CHLORIDE 93 mEq/L (98-107); GLUCOSE 179 MG/DL (70-99); SODIUM LEVEL 139 mEq/L (137-146)
--- NOTE | 2016-05-31 11:17 | PCM.CARDCO ---
Consultation Date: 05/31/16 Requesting Physician: Devi Smith Tipple Engineer: Paul Muñoz Consult Reason: Other - History of Present Illness Patient is pleasant 65-year-old female. She is brought in here because disorientation altered mental status. She has known coronary artery disease unfortunately she smokes significantly. She was found to be in respiratory failure and treated and is doing better. Her evaluation reveals that she is suffering pneumonitis and also chronic ischemic process in the brain. At the time my evaluation she is alert awake oriented she mumbles some words which are irrelevant at times. No orthopnea or PND no symptoms from a cardiovascular standpoint. She tells me that she is known to have atrial fibrillation and her daughter who works at a doctor's office locally also confirms this. She denies any history of diabetes mellitus. Chief Complaint: Altered mental status - Past Medical and Surgical History Cardiac History: Reports: No Significant History, Coronary Artery Disease, Atrial Fibrillation, Hypertension Respiratory History: Reports: No Significant History, COPD GI/ History: Reports: No Significant History Systemic History: Reports: No Significant History Musculoskeletal History: Reports: No Significant History Psychological History: Reports: No Significant History. Denies: Substance Use Disorder Neurological History: Reports: No Significant History Past Surgical History: Reports: No Significant History Allergies lorazepam [From Ativan] Allergy (Verified 05/29/16 14:18) Agitation [id number]-Vyh-Smf Reductase Inhibitor Allergy (Verified 05/30/16 01:37) Nausea/Vomiting Home Medications Carvedilol [Coreg] 6.25 mg PO BID 10/28/14 Lisinopril [Zestril] 20 mg PO DAILY 10/28/14 Aspirin (Enteric Coated) [Halfprin] 81 mg PO DAILYWM #100 tablet 10/30/14 Apixaban [Eliquis] 2.5 mg PO BID 05/29/16 Furosemide [Lasix] 20 mg PO DAILY 05/29/16 POTASSIUM CHLORIDE Tablet [K-DUR 20 mEq Tablet*] 20 meq PO BID 05/29/16 - Social History Social History: Denies: Substance Use Disorder - Family History Reports: No Significant History, Hypertension (Brother, father), Cancer (Sister) , Cardiac Disorders (Father, brother) - Review of Systems Constitutional: negative: Chills, Fever, Fatigue, Weight loss - Physical Exam Constitutional: Decreased Consciousness (opens eyes and answers questions then goes back to sleep.) Oriented to: Person Exam: Last Vital Signs Temp 98.4 F 05/31/16 08:00 Pulse 101 05/31/16 10:00 Resp 18 05/31/16 08:00 BP 145/98 05/31/16 08:00 Pulse Ox 91 05/31/16 08:00 Intake & Output 05/30/16 05/31/16 05/31/16 23:59 07:59 15:59 Intake Total 120 637 60 Output Total 400 500 Balance -280 137 60 Patient's weight 67.585 kg - HEENT Head: Normal. negative: Abrasion, Laceration Eye: negative: Conjunctival Injection, Scleral Icterus Oropharynx: Other (unable to evaluate due to bipap) Tympanic Membrane: Normal ENT EAC: Other (unable to evaluate due to bipap) Nose: Other (unable to evaluate due to bipap) - Respiratory/Cardiovascular Respiratory: Diminished Cardiovascular: Other (S1-S2 irregular 2/6 systolic murmur at the apex) - GI Auscultation: Normal Palpation: Normal. negative: Enlarged liver, Enlarged spleen Tenderness: Non tender Rectal Exam: Deferred - Musculoskeletal Back: negative: CVA Tenderness Extremities: Clubbing (mild in fingers) - Integumentary Lymphatics: negative: Cervical Adenopathy, Supraclavicular Adenopathy - Neurologic Memory Impaired: Unable to Test Cerebellar: Unable to Test Mood Description: Agitated Thought: Other (unable to test due to bipap.) - Other Exam Other Exam Findings: Abdomen is nontender. No cyanosis clubbing or pedal edema on the extremity evaluation. Neurological and musculoskeletal examination is nonfocal. - Assessment/Plan (1) Altered mental status R41.82 - ALTERED MENTAL STATUS, UNSPECIFIED Acute Comment: Patient's mentation has improved significantly. This is being addressed by the hospitalist. CT scan of her brain is abnormal. (2) CHF (congestive heart failure) I50.9 - HEART FAILURE, UNSPECIFIED Acute combined acute on chronic I50.43 - Acute on chronic combined systolic ( congestive) and diastolic (congestive) heart failure Comment: This also seems to have improved significantly. I am not sure how much of this has contributed to her symptoms and admission. CHF education was given to the patient at length. (3) COPD with exacerbation J44.1 - CHRONIC OBSTRUCTIVE PULMONARY DISEASE W (ACUTE) EXACERBATION Acute Comment: This is a significant problem. Patient does in respiratory failure. Patient is treated for this and is doing better and also is being treated for pneumonitis. (4) Tobacco abuse Z72.0 - TOBACCO USE Acute Comment: I spent 5 minutes discussing smoking cessation and risks of smoking was explained she vocalized understanding. She does not seem to be too keen on quitting. Her daughter understands and says that she is trying to get her off her smoking. (5) Atrial fibrillation with RVR I48.91 - UNSPECIFIED ATRIAL FIBRILLATION Acute Comment: Rates are well controlled. Her chads score is less than 2. Also patient is noncompliant with medical advice. In view of her confusion spells I am not sure she is a candidate for anticoagulation in the 1st place. (6) Essential hypertension I10 - ESSENTIAL (PRIMARY) HYPERTENSION Acute Comment: Blood pressure is stable at this time. (7) Coronary artery disease I25.10 - ATHSCL HEART DISEASE OF [place] CORONARY ARTERY W/O ANG PCTRS Chronic [place] coronary artery [place] heart Comment: Clinically stable. Echocardiogram was reviewed with the patient. We will follow. Case Care Discussed with: Patient, Consultants, Family
[2016-05-31] MEDS: NICOTINE 21 MG PATCH TOP SCH (13:24)
--- NOTE | 2016-05-31 15:35 | DIRPT ---
CLINICAL DATA: 65-year-old female with confusion. Vomiting with stomach pains for 2 days. Hypoxia. Subsequent encounter. EXAM: MRI HEAD WITHOUT AND WITH CONTRAST TECHNIQUE: Multiplanar, multiecho pulse sequences of the brain and surrounding structures were obtained without and with intravenous contrast. CONTRAST: 14 cc MultiHance COMPARISON: 05/29/[address] FINDINGS: Restricted motion diffusion medial left temporal lobe involving hippocampus and uncus. This distribution in the proper clinical setting raises possibility of herpes encephalitis. Other causes such as that secondary to seizures, acute infarct or limbic encephalopathy can be considered after possibility of herpes has been addressed. Question tiny petechial hemorrhage left uncus versus partial volume averaging with adjacent vessel. 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 Prominent patchy white matter changes supratentorial subcortical and periventricular region. Typically findings are related to result of prior ischemia in a patient of this age. Result of demyelinating process, inflammatory process or vasculitis are secondary considerations. No intracranial mass or abnormal enhancement. Small left vertebral artery with superimposed atherosclerotic disease and subsequent narrowing suspected. Remainder of major intracranial vascular structures are patent. Global atrophy without hydrocephalus. Cervical medullary junction, pituitary region, pineal region and orbital structures unremarkable. IMPRESSION: Restricted motion diffusion medial left temporal lobe involving hippocampus and uncus. This distribution in the proper clinical setting raises possibility of herpes encephalitis. Other causes such as that secondary to seizures, acute infarct or limbic encephalopathy can be considered after possibility of herpes has been addressed. Question tiny petechial hemorrhage left uncus versus partial volume averaging with adjacent vessel. 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 Prominent patchy white matter changes supratentorial subcortical and periventricular region. Typically findings are related to result of prior ischemia in a patient of this age. Result of demyelinating process, inflammatory process or vasculitis are secondary considerations. No intracranial mass or abnormal enhancement. Small left vertebral artery with superimposed atherosclerotic disease and subsequent narrowing suspected. These results were called by telephone at the time of interpretation on 05/31/2016 at 3:[address] LAUREN KENNEDY MD, who verbally acknowledged these results. Electronically Signed By: Job Saeed M.D. On: 05/31/2016 15:33
--- NOTE | 2016-05-31 16:16 | DIRPT ---
CLINICAL DATA: Chronic abdominal pain. EXAM: US ABDOMEN LIMITED - RIGHT UPPER QUADRANT COMPARISON: None. FINDINGS: Gallbladder: There is suggestion of some biliary sludge in the gallbladder without shadowing calculi. Small echogenic focus measuring 4 mm may represent a small polyp. No gallbladder wall thickening or sonographic Valenzuela's sign elicited. Common bile duct: Diameter: Normal caliber of 4 mm. Liver: No focal lesion identified. Within normal limits in parenchymal echogenicity. No biliary ductal dilatation. Tiny echogenic focus may represent a granuloma. IMPRESSION: Suggestion of some sludge in the gallbladder and potentially a small 4 mm polyp. No shadowing gallstones or evidence of cholecystitis. Bile ducts are normal in caliber. Electronically Signed By: Greg Parry M.D. On: 05/31/2016 16:14
--- NOTE | 2016-05-31 16:38 | PCM.CONSGI ---
Consult Date: 05/31/16 Consult Reason: Abdominal Pain - History of Present Illness 65-year-old very pleasant white female who was a very poor historian admitted with change in mental status. She underwent CT scan of the head followed by MRI of the head which showed questionable evidence of herpes simplex encephalitis. She has been started on IV acyclovir and appropriate cultures have been ordered. GI is being consulted for longstanding history of epigastric discomfort with associated occasional nausea without any significant vomiting. She does have history of heartburn. She had EGD performed several years ago which showed evidence of H pylori. She has been treated for the same. She denies having any significant odynophagia or dysphagia. She does complain of diarrhea over the last year ever since she has been on statins. Her statins have been stopped with resultant improvement in diarrhea. She never had any colonoscopy performed. She refuses to have any colonoscopy in the future as well. On admission she was also found to have respiratory failure, congestive heart failure. She has history of atrial fibrillation. Eliquis was held - Past Medical History Cardiac History: Reports: Coronary Artery Disease, Atrial Fibrillation, Hypertension Respiratory History: Reports: COPD GI/ History: Reports: GERD Musculoskeletal History: Reports: Arthritis Neurological History: Denies: Seizures Psychological History: Reports: No Significant History. Denies: Alcoholism, Substance Use Disorder - Surgical History Past Surgical History: Reports: No Significant History - Family History Family History: Reports: Cardiac Disorders (Father, brother), Cancer (Sister), Hypertension (Brother, father) - Allergies Allergies lorazepam [From Ativan] Allergy (Verified 05/29/16 14:18) Agitation Jegvksh-Kcc-Pea Reductase Inhibitor Allergy (Verified 05/30/16 01:37) Nausea/Vomiting - Medications Home Medications Carvedilol [Coreg] 6.25 mg PO BID 10/28/14 Lisinopril [Zestril] 20 mg PO DAILY 10/28/14 Aspirin (Enteric Coated) [Halfprin] 81 mg PO DAILYWM #100 tablet 10/30/14 Apixaban [Eliquis] 2.5 mg PO BID 05/29/16 Furosemide [Lasix] 20 mg PO DAILY 05/29/16 POTASSIUM CHLORIDE Tablet [K-DUR 20 mEq Tablet*] 20 meq PO BID 05/29/16 - Social History Lives: Alone (daughter lives next door) Smoking Status: Heavy tobacco smoker (5 or more cigarettes/day or daily pipe/ cigar) Social History: Denies: Alcohol Use, Cocaine Use, Heroin Use, Marijuana Use, Substance Use Disorder - Review of Systems Constitutional: Other (No night sweats.). negative: Chills, Fever, Weight loss (Recent) Mouth: negative: Pain Cardiovascular: negative: Chest Pain, Orthopnea, PND Gastrointestinal: Other (No jaundice, dark urine or pale stools.) Genitourinary: Other (Denies polyuria.). negative: Dysuria Neurological: Other (Denies loss of consciousness.). negative: Seizure Allergic/Immunologic: negative: Hives, Itching Hematologic: negative: Easy Bruising - Exam Vital Signs: Temperature: 98.3 F (05/31/16 12:00) HR: 96 (05/31/16 12:00) RR: 18 (05/31/16 12:00) BP: 151/109 (05/31/16 12:00) Pulse Ox: 95 (05/31/16 12:00) General: Alert, Oriented x3, Cooperative, No acute distress HEENT: Normal, Other (No Jaundice). negative: Pallor Cardiovascular: Normal S1, Normal S2, Other (No S3 or S4.). negative: No murmurs Gastrointestinal: Soft, Bowel Sounds (normal), Other (No ascites.). negative: Tender, Guarding, Rigid, Hepatosplenomegaly Extremities: Normal pulses. negative: Swelling, Edema Skin: Warm,Dry and Intact Neurological: Normal speech, Other (No focal neurologic deficits.) Psych/Mental Status: Normal Affect, Cooperative - Labs Result Diagrams: 05/31/16 08:45 05/31/16 08:45 Laboratory Tests 05/30/16 05/31/16 05/31/16 17:28 08:45 08:45 WBC 16.0 H Hgb 15.2 MCV 89 Plt Count 186 pH 7.480 H pCO2 42.0 pO2 76.0 L HCO3 31.3 H Total CO2 32.6 H Base Excess 7.0 H Chloride 93 L Carbon Dioxide 35 H Anion Gap 15 BUN 26 H Creatinine 1.10 H Estimated GFR (MDRD) 50 L Glucose 179 H Cnj-A-[place] Pept 7470 H EXAM: US ABDOMEN LIMITED - RIGHT UPPER QUADRANT COMPARISON: None. FINDINGS: Gallbladder: There is suggestion of some biliary sludge in the gallbladder without shadowing calculi. Small echogenic focus measuring 4 mm may represent a small polyp. No gallbladder wall thickening or sonographic Valenzuela's sign elicited. Common bile duct: Diameter: Normal caliber of 4 mm. Liver: No focal lesion identified. Within normal limits in parenchymal echogenicity. No biliary ductal dilatation. Tiny echogenic focus may represent a granuloma. IMPRESSION: Suggestion of some sludge in the gallbladder and potentially a small 4 mm polyp. No shadowing gallstones or evidence of cholecystitis. Bile ducts are normal in caliber. MRI head: IMPRESSION: Restricted motion diffusion medial left temporal lobe involving hippocampus and uncus. This distribution in the proper clinical setting raises possibility of herpes encephalitis. Other causes such as that secondary to seizures, acute infarct or limbic encephalopathy can be considered after possibility of herpes has been addressed. Question tiny petechial hemorrhage left uncus versus partial volume averaging with adjacent vessel. 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 Prominent patchy white matter changes supratentorial subcortical and periventricular region. Typically findings are related to result of prior ischemia in a patient of this age. Result of demyelinating process, inflammatory process or vasculitis are secondary considerations. No intracranial mass or abnormal enhancement. Small left vertebral artery with superimposed atherosclerotic disease and subsequent narrowing suspected. 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 - HERPESVIRAL ENCEPHALITIS (2) Altered mental status Acute R41.82 - ALTERED MENTAL STATUS, UNSPECIFIED (3) CHF (congestive heart failure) Acute I50.9 - HEART FAILURE, UNSPECIFIED combined acute on chronic I50.43 - Acute on chronic combined systolic ( congestive) and diastolic (congestive) heart failure (4) COPD with exacerbation Acute J44.1 - CHRONIC OBSTRUCTIVE PULMONARY DISEASE W (ACUTE) EXACERBATION (5) Respiratory failure Acute J96.90 - RESPIRATORY FAILURE, UNSP, UNSP W HYPOXIA OR HYPERCAPNIA acute hypoxia and hypercapnia J96.01 - Acute respiratory failure with hypoxia; J96.02 - Acute respiratory failure with hypercapnia (6) Tobacco abuse Acute Z72.0 - TOBACCO USE (7) Atrial fibrillation with RVR Acute I48.91 - UNSPECIFIED ATRIAL FIBRILLATION (8) Epigastric pain Acute R10.13 - EPIGASTRIC PAIN (9) Diarrhea Acute R19.7 - DIARRHEA, UNSPECIFIED Recommendations: 1. would recommend EGD. Initially it was schedule for tomorrow morning. However, due to new findings on MRI of the brain, we would like to hold off on EGD for the next 24-48 hours. 2. Await herpes serology 3. IV Protonix 4. The diarrhea appears to have completely resolved. 5. Will follow along. I will discuss above with Dr. Smith. I have paged her.
[2016-05-31] MEDS: Levofloxacin 500 mg/100 ml D5W 500 MG/100 ML RTU IV SCH (16:52)
[2016-05-31] MEDS ORDERED: MEBROFENIN 5 MCI V IV ONE (17:18)
--- NOTE | 2016-05-31 17:28 | GENMEDPROG ---
Chief Complaint: Patient's daughter very concerned she says her mother is not able to eat due to vomiting. She says that she has had vomiting and diarrhea for a year. She also is concerned about her mother's confusion but was not able to further quantitate that or quality take that. Subjective Note: 65-year-old female presented to the hospital with abdominal pain diagnosed with possible pneumonia and congestive heart failure. Evaluation for confusion yesterday for metabolic causes was unremarkable. Today the patient was talking with me in and started talking about warms in [place]. This is quite odd. She has a completely normal neurological examination. She her daughter appears very concerned about what she reports is a sudden change with the confusion however she is also equally concerned about her mother's GI symptoms. Notes Reviewed: Yes Events from last night noted and discussed with Clinical Staff Current Medication List: Reviewed Currently: Reports: Wheezing, SOB DVT Prophylaxis: Yes - Physical Examination Vital Signs and I&O: Last Vital Signs Temp 98.3 F 05/31/16 12:00 Pulse 96 05/31/16 12:00 Resp 18 05/31/16 12:00 BP 151/109 H 05/31/16 12:00 Pulse Ox 95 05/31/16 12:00 Oxygen Pulse Oxygen Saturation 95 O2 Device Room Air Oxygen Flow Rate 2 Fraction of Inspired Oxygen ( 35 FIO2) Intake & Output 05/28/16 05/29/16 05/30/16 05/31/16 23:59 23:59 23:59 23:59 Intake Total 300 1041 697 Output Total 1350 2825 500 Balance -1050 -1784 197 Patient's weight 68.311 kg 67.857 kg 67.585 kg General: Alert, Oriented x3, Cooperative, No acute distress HEENT: Normal (Normocephalic, atraumatic;EOMI.Sclera white, Nares patent, without discharge or bleeding. No oropharyngeal lesions or erythema. Mucous membranes are dry.) Lymphatics: Normal (No lymph node swelling or pain.) Respiratory: Normal - CTA (Clear to auscultation bilaterally. No wheezing, rales , rhonchi. Chest wall movements are symmetric. No use of accessory muscles to breathe.) Cardiovascular: Regular rate and rhythm (No bradycardia or tachycardia), Normal S1, No Gallops,Rubs/Murmurs, Normal S2, Good Pedal Pulses (DP pulses 2+ bilaterally) GI: Normal bowel sounds (normal active sounds), Soft (non-distended), Non tender , No hepatospenomegaly, No masses Extremities/Musculoskeletal: Normal pulses. negative: Swelling, Edema Skin: Warm,Dry and Intact Neurological: Strength at 5/5 X4 ext (Motor 5/5 throughout.), Normal tone, Cranial nerves 3-12 NL ( 2-12 grossly intact.) Lab/DI/Studies Reviewed: Laboratory Results - last 24 hr 05/30/16 05/31/16 05/31/16 17:28 08:45 08:45 WBC 16.0 H RBC 5.20 Hgb 15.2 Hct 46.4 MCV 89 MCH 29.2 MCHC 32.8 L RDW 13.6 Plt Count 186 MPV 10.8 H Neut % (Auto) 83.1 H Lymph % (Auto) 11.3 L [place] % (Auto) 5.1 Eos % (Auto) 0.0 Baso % (Auto) 0.5 Absolute Neuts (auto) 13.28 H Absolute Lymphs (auto) 1.76 Puncture Site Right radial pH 7.480 H pCO2 42.0 pO2 76.0 L HCO3 31.3 H Total CO2 32.6 H Base Excess 7.0 H FiO2 % 21% ra Specimen Drawn By Piksa Sodium 139 Potassium 3.6 Chloride 93 L Carbon Dioxide 35 H Anion Gap 15 BUN 26 H Creatinine 1.10 H Estimated GFR (MDRD) 50 L Glucose 179 H Calculated Osmolality 277 Calcium 9.6 Magnesium 2.10 Fqu-U-[place] Pept 7470 H - Assessment (1) Respiratory failure with hypoxia Acute J96.91 - RESPIRATORY FAILURE, UNSPECIFIED WITH HYPOXIA Qualifiers: Chronicity: acute on chronic Qualified Code(s): J96.21 - Acute and chronic respiratory failure with hypoxia Comment/Plan: Evaluation yesterday was unremarkable. Will continue workup. (2) Altered mental status Acute R41.82 - ALTERED MENTAL STATUS, UNSPECIFIED Comment/Plan: [place] due to hypoxemia yesterday however her discussion with me today was quite concerning. Will check an MRI and consult Neurology. (3) COPD with exacerbation Acute J44.1 - CHRONIC OBSTRUCTIVE PULMONARY DISEASE W (ACUTE) EXACERBATION Comment/Plan: supplemental oxygen, nebulized medications, steroids. (4) Acute on chronic systolic and diastolic heart failure, NYHA class 1 Acute I50.43 - ACUTE ON CHRONIC COMBINED SYSTOLIC AND DIASTOLIC HRT FAIL Comment/Plan: Echocardiogram shows EF of 40-45%. Continue present management. Cardiology has been consulted. (5) Atrial fibrillation with RVR Acute I48.91 - UNSPECIFIED ATRIAL FIBRILLATION Comment/Plan: Continue present care. (6) Essential hypertension Acute I10 - ESSENTIAL (PRIMARY) HYPERTENSION Comment/Plan: Use home meds when she is able to take po. (7) Coronary artery disease Chronic I25.10 - ATHSCL HEART DISEASE OF [place] CORONARY ARTERY W/O ANG PCTRS Qualifiers: Coronary Disease-Associated Artery/Lesion type: [place] coronary artery [place] vs. transplanted heart: [place] heart Comment/Plan: check cardiac enzymes. use home meds when able. (8) Tobacco abuse Acute Z72.0 - TOBACCO USE Comment/Plan: nicotine patch for now. When able, offer tobacco abiuse counselling. (9) Abdominal pain Acute R10.9 - UNSPECIFIED ABDOMINAL PAIN Qualifiers: Abdominal location: epigastric Qualified Code(s): R10.13 - Epigastric pain Comment/Plan: I have consulted Dr. Solis for further evaluation and management of patient's abdominal pain. (10) Nausea and vomiting Acute R11.2 - NAUSEA WITH VOMITING, UNSPECIFIED Comment/Plan: It is very difficult to discern the nature of her vomiting. Family states that she vomits after she eats. Dr. Solis will evaluate the patient. She may require esophagogastroduodenoscopies. Gallbladder ultrasound and HIDA scan have been ordered. - Plan Patient has refused to wear her BiPAP today and daughter has concerns about her continued confusion. Although the patient is awake and alert will check a blood gas to rule out hypercarbia as cause of confusion. I have also held her Phenergan and pain medications. We are going to discontinue her Goss and we are going to start clear liquids advance as tolerated. Please note I have consulted Cardiology. Disposition Plan: Likely home when improved. After having evaluated the patient I doubt a phone call from the radiologist reporting that her MRI was very abnormal and concerning for herpes encephalitis. Neurology had already been consulted and acyclovir was immediately begun. At 5:30 p.m. patient's daughter requested transfer to another facility Dr. Walsh became involved in for explain that transfer at night for stable patient was a very undesirable thing that she might not leave until 2 in the morning and the likely are very few beds available if any. Out the patient's daughter's request Dr. Walsh did consult [facility] and was told they were in a [facility] [place] which meant that they could not take any transfers due to unavailability of inpatient beds. She related this information to the patient's sister who was present at the time. Patient is currently receiving appropriate care neurology will see the patient today. Case Care Discussed with: Patient, Consultants, Family, Nursing Staff Total Time: 90 minutes. Critical Care: No Couseling Time (>50% in counseling/coordination): No
[2016-05-31] MEDS: POTASSIUM CHLORIDE 20 MEQ TAB PO SCH (18:34)
[2016-05-31] MEDS: ACYCLOVIR IV SCH (18:34)
[2016-05-31] MEDS: NS IV SCH (18:34)
--- NOTE | 2016-05-31 19:42 | DIRPT ---
CLINICAL DATA: Diarrhea and nausea EXAM: NUCLEAR MEDICINE HEPATOBILIARY IMAGING TECHNIQUE: Sequential images of the abdomen were obtained out to 60 minutes following intravenous administration of radiopharmaceutical. RADIOPHARMACEUTICALS: 5.5 mCi Tc-99m Choletec IV COMPARISON: None. FINDINGS: Following the IV administration of contrast material there is uniform tracer uptake by the liver with clearance from blood pool. Radiotracer accumulation within the gallbladder occurs by 12 minutes. Radiotracer activity is identified within the small bowel loops confirming biliary patency. IMPRESSION: 1. Patent cystic duct without evidence for acute cholecystitis. Electronically Signed By: Tana Hankins M.D. On: 05/31/2016 19:39
[2016-05-31] MEDS: ACETAMINOPHEN 325 MG/TAB TABLET PO PRN (20:12)
--- NOTE | 2016-05-31 20:51 | PCM.NEUCO ---
Consultation Date: 05/31/16 Requesting Physician: Devi Smith Consulting Doctor: Elijah Pedro Reason For Consult: Mental Status Changes 65 yof with h/o CHF and afib, on eliquis, was found to be confused by her daughter who lives nearby on 05/29/16. Brought to ED and found to have a PO2 of 42 and CXR showed pneumonia. Head CT showed no acute process. Pt admitted for pneumonia and hypoxemia. Her oxygen levels rapidly improved but her confusion did not. Her sister says that she is not much better and may be worse. She was able to spell WORLD forwards and backwards and oriented to day, date, month and year. Her sister says the confusion is evidenced by bizarre statements that make no sense. Pt says she is not confused, we are the ones confused. Pt admits poor memory and admits she gets lost in what she is saying but says that her memory problems have been all her life. She has an 8th grade education. She had an MRI scan done that showed acute left temporal lesion with a hint of petechial hemorrhage. 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 Pt placed on acyclovir and LP ordered under flouro in the AM. Daughter would like for patient to be transferred to [facility] for further evaluation and treatment. - Past Medical and Surgical History Cardiac History: Reports: Coronary Artery Disease, Atrial Fibrillation, Hypertension, Congestive Heart Failure, Cardiac Catheterization (stents x 2), Hypercholesterolemia Respiratory History: Reports: COPD, Pneumonia (Had pneumonia within the last 2 years.) GI/ History: Reports: Gastroesophageal Reflux Systemic History: Reports: No Significant History, HIV (I was asked to evaluate the patient because of history of coronary arter d). Denies: Anemia, Diabetes, Hypothyroidism Musculoskeletal History: Reports: No Significant History, Arthritis Psychological History: Reports: No Significant History. Denies: Depression, Alcoholism, Substance Use Disorder Neurological History: Reports: No Significant History. Denies: Seizures, Dementia Past Surgical History: Reports: No Significant History, Cardiac Catheterization (stents x 2) Allergies lorazepam [From Ativan] Allergy (Verified 05/29/16 14:18) Agitation Zzmtryv-Dmx-Fww Reductase Inhibitor Allergy (Verified 05/30/16 01:37) Nausea/Vomiting Home Medications Carvedilol [Coreg] 6.25 mg PO BID 10/28/14 Lisinopril [Zestril] 20 mg PO DAILY 10/28/14 Aspirin (Enteric Coated) [Halfprin] 81 mg PO DAILYWM #100 tablet 10/30/14 Apixaban [Eliquis] 2.5 mg PO BID 05/29/16 Furosemide [Lasix] 20 mg PO DAILY 05/29/16 POTASSIUM CHLORIDE Tablet [K-DUR 20 mEq Tablet*] 20 meq PO BID 05/29/16 - Social History Travel Outside of [place] in the Last 3 Months?: No Lives: Alone (daughter lives next door) Smoking Status: Heavy tobacco smoker (5 or more cigarettes/day or daily pipe/ cigar) Social History: Denies: Alcohol Use, Cocaine Use, Heroin Use, Marijuana Use, Substance Use Disorder - Family History Reports: No Significant History, Hypertension (Brother, father), Cancer (Sister) , Cardiac Disorders (Father, brother) - Review of Systems Constitutional: No Symptoms Reported Eyes: Blurred Vision Ears: Hearing Loss (left ear) Nose: No Symptoms Reported Mouth: Dry Mouth Throat/Neck: No Symptoms Reported Respiratory: No Symptoms Reported Cardiovascular: No Symptoms Reported Gastrointestinal: Abdominal Pain Genitourinary: No Symptoms Reported Neurological: Speech Difficulty, Memory Changes. negative: Seizure, Weakness, Vertigo, Tremors, Tingling Musculoskeletal:: Chronic low back pain Integumentary: No Symptoms Reported Allergic/Immunologic: No Symptoms Reported Hematologic: Easy Bruising (on eliquis) Endocrine: No Symptoms Reported Psychiatric: No Symptoms Reported - Physical Exam Vital Signs: Initial Vitals Temperature 97.4 F L 05/29/16 10:50 Pulse Rate 95 05/29/16 10:50 Respiratory Rate 22 05/29/16 10:50 Blood Pressure 156/103 H 05/29/16 10:50 Pulse Oxygen Saturation 78 L 05/29/16 10:50 Constitutional: No apparent distress, Alert Oriented to: Time, Person, Place Exam: Spells WORLD forward and backwards, oriented to day, date, month and year. Does not remember any of 3 words at 5 minutes. - HEENT Head: Normal Eye: Normal Oropharynx: Normal TMJ: Normal Nose: negative: Abrasion Respiratory: negative: Accessory Muscle Use Cardiovascular: Irregular - GI Tenderness: Diffuse, Mild Rectal Exam: Deferred - Exam Deferred: Yes - Musculoskeletal Back: Other (diffusely tender.) Extremities: Normal Spine: paraspinous muscle tender, tender midline. negative: stiff neck - Integumentary Skin: Warm, Dry - Mental Status Orientation: Time, Person, Place Speech: Fluent, Clear Coginitive: Short-term (memory deficits but patient says her memory has always been poor.) Motor Function: Normal Affect: Normal Thought: Coherent Perception: Normal - Sensory Sensory: Normal - Reflex Babinski Reflex Response: Absent Bilateral Reflexes: Normal 2+: Right Bicep, Left Bicep, Left Tricep, Right Tricep, Left Brachioradialis, Right Brachioradialis, Left Patellar, Right Patellar, Left Achilles, Right Achilles - Lab Results Laboratory Tests 05/29/16 05/29/16 05/29/16 10:55 10:55 10:55 WBC 10.2 MCV 90 Neut % (Auto) 86.3 H INR 1.1 pH pCO2 pO2 Calcium 9.1 Total Bilirubin 1.6 H ALT 47 Alkaline Phosphatase 81 Troponin I < 0.01 Ipk-Z-Ivdhnjifihm Pept TSH Ur Leukocyte Esterase Urine WBC Urine Opiates Screen Ur Oxycodone Screen Urine Methadone Screen Ur Barbiturates Screen Ur Tricyclics Screen Ur Phencyclidine Scrn Ur Amphetamines Screen U Methamphetamines Scrn Urine MDMA Screen U Benzodiazepines Scrn Urine Cocaine Screen Ur THC Screen 05/29/16 05/29/16 05/29/16 10:55 11:04 13:45 WBC MCV Neut % (Auto) INR pH 7.260 L pCO2 56.0 H pO2 42.0 L* Calcium Total Bilirubin ALT Alkaline Phosphatase Troponin I < 0.01 Bzq-Z-Qnmjvahywei Pept 4330 H TSH Ur Leukocyte Esterase Urine WBC Urine Opiates Screen Ur Oxycodone Screen Urine Methadone Screen Ur Barbiturates Screen Ur Tricyclics Screen Ur Phencyclidine Scrn Ur Amphetamines Screen U Methamphetamines Scrn Urine MDMA Screen U Benzodiazepines Scrn Urine Cocaine Screen Ur THC Screen 05/29/16 05/29/16 05/29/16 13:45 14:08 14:08 WBC MCV Neut % (Auto) INR pH pCO2 pO2 Calcium Total Bilirubin ALT Alkaline Phosphatase Troponin I Dem-G-Sezhbozmrrl Pept TSH 1.21 Ur Leukocyte Esterase Neg Urine WBC 0-2 Urine Opiates Screen *positive* H Ur Oxycodone Screen Neg Urine Methadone Screen Neg Ur Barbiturates Screen Neg Ur Tricyclics Screen Neg Ur Phencyclidine Scrn Neg Ur Amphetamines Screen Neg U Methamphetamines Scrn Neg Urine MDMA Screen Neg U Benzodiazepines Scrn Neg Urine Cocaine Screen Neg Ur THC Screen Neg 05/29/16 05/30/16 05/30/16 16:45 10:52 17:28 WBC MCV Neut % (Auto) INR pH 7.490 H 7.480 H pCO2 39.0 42.0 pO2 72.0 L 76.0 L Calcium Total Bilirubin ALT Alkaline Phosphatase Troponin I < 0.01 Ijg-B-Xaejaqzsjbt Pept TSH Ur Leukocyte Esterase Urine WBC Urine Opiates Screen Ur Oxycodone Screen Urine Methadone Screen Ur Barbiturates Screen Ur Tricyclics Screen Ur Phencyclidine Scrn Ur Amphetamines Screen U Methamphetamines Scrn Urine MDMA Screen U Benzodiazepines Scrn Urine Cocaine Screen Ur THC Screen 05/31/16 05/31/16 08:45 08:45 WBC 16.0 H MCV 89 Neut % (Auto) 83.1 H INR pH pCO2 pO2 Calcium 9.6 Total Bilirubin ALT Alkaline Phosphatase Troponin I Lti-V-Hgzqqriuymh Pept 7470 H TSH Ur Leukocyte Esterase Urine WBC Urine Opiates Screen Ur Oxycodone Screen Urine Methadone Screen Ur Barbiturates Screen Ur Tricyclics Screen Ur Phencyclidine Scrn Ur Amphetamines Screen U Methamphetamines Scrn Urine MDMA Screen U Benzodiazepines Scrn Urine Cocaine Screen Ur THC Screen - Diagnostic Findings MRI of brain results: IMPRESSION: Restricted motion diffusion medial left temporal lobe involving hippocampus and uncus. This distribution in the proper clinical setting raises possibility of herpes encephalitis. Other causes such as that secondary to seizures, acute infarct or limbic encephalopathy can be considered after possibility of herpes has been addressed. Question tiny petechial hemorrhage left uncus versus partial volume averaging with adjacent vessel. 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 Prominent patchy white matter changes supratentorial subcortical and periventricular region. Typically findings are related to result of prior ischemia in a patient of this age. Result of demyelinating process, inflammatory process or vasculitis are secondary considerations. No intracranial mass or abnormal enhancement. Small left vertebral artery with superimposed atherosclerotic disease and subsequent narrowing suspected. - Assessment/Plan (1) Altered mental status R41.82 - ALTERED MENTAL STATUS, UNSPECIFIED Acute Present on Admission: Yes Comment: Pt with bizarre speech patterns intermittently and with MRI showing anterior, medial temporal lobe DWI positive lesion in a pattern suggesting liklihood of herpes encephalitis. Pt needs LP with testing for HSV, but is on Eliquis and will need washout time before LP. Pt is already on Acyclovir. She may need video EEG monitoring which would make transfer to an [facility] a reasonable option. Continue treatment for possible HSV and LP in AM or at [facility]. Continue eliquis after a day or so after the LP. ST and OT. Continue treatment for pneumonia. Case Care Discussed with: Patient, Consultants, Family, Nursing Staff
[2016-06-01] MEDS: FUROSEMIDE 40 MG/4 ML VIAL IV SCH ×3 (00:27→23:05)
[2016-06-01] MEDS: METOPROLOL 5 MG/5 ML SDV IV SCH ×5 (00:31→23:05)
[2016-06-01] MEDS: Albuterol/Ipratropium Neb 3 ML NEB NEB SCH ×4 (01:30→19:39)
[2016-06-01] MEDS: NS IV SCH ×3 (02:20→18:39)
[2016-06-01] MEDS: ACYCLOVIR IV SCH ×3 (02:20→18:39)
[2016-06-01] MEDS: D5-1/2NS/KCL 20 mEq 1,000 ML IV SCH ×2 (04:16→23:05)
[2016-06-01] MEDS: ENOXAPARIN 80 MG/0.8 ML PFS SQ SCH (04:19)
--- NOTE | 2016-06-01 06:26 | GENMEDPROG ---
Note CROSS COVER NOTE 05/31/161999 S: Patient's family wants the patient transferred to [facility]. Patient does need an LP, which was scheduled for the morning, but the patient's daughter is refusing the LP. She wants the LP done at [facility]. O: Vital Signs - 24 hr 05/31/16 05/31/16 05/31/16 08:00 10:00 12:00 Temperature 98.4 F 98.3 F Pulse Rate 99 101 97 Respiratory 18 18 Rate Blood Pressure 145/98 151/109 H Pulse Oxygen 91 95 Saturation 05/31/16 05/31/16 05/31/16 14:00 16:00 18:00 Temperature Pulse Rate 91 98 93 Respiratory Rate Blood Pressure Pulse Oxygen Saturation 05/31/16 05/31/16 05/31/16 18:11 19:39 19:54 Temperature 98.9 F 98.9 F Pulse Rate 95 83 Respiratory 18 18 Rate Blood Pressure 160/101 H 138/91 Pulse Oxygen 94 95 96 Saturation Laboratory Results - last 24 hr 05/31/16 05/31/16 08:45 08:45 WBC 16.0 H RBC 5.20 Hgb 15.2 Hct 46.4 MCV 89 MCH 29.2 MCHC 32.8 L RDW 13.6 Plt Count 186 MPV 10.8 H Neut % (Auto) 83.1 H Lymph % (Auto) 11.3 L [place] % (Auto) 5.1 Eos % (Auto) 0.0 Baso % (Auto) 0.5 Absolute Neuts (auto) 13.28 H Absolute Lymphs (auto) 1.76 Sodium 139 Potassium 3.6 Chloride 93 L Carbon Dioxide 35 H Anion Gap 15 BUN 26 H Creatinine 1.10 H Estimated GFR (MDRD) 50 L Glucose 179 H Calculated Osmolality 277 Calcium 9.6 Magnesium 2.10 Dna-H-Dnpjlryzdip Pept 7470 H A/P: 1. Encephalitis. 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 Plan: Appreciate neurology consult. Continue IV acyclovir. Patient does need an LP, which was scheduled for the morning, but the patient's daughter is refusing the LP. She wants the LP done at [facility].
[2016-06-01] MEDS: POTASSIUM CHLORIDE 20 MEQ TAB PO SCH ×2 (07:52→17:59)
--- NOTE | 2016-06-01 09:43 | CAPUEKG ---
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
--- NOTE | 2016-06-01 10:25 | PCM.CARD ---
- Subjective Current Assessment: No New Symptoms (Patient denies any symptoms from a cardiovascular standpoint.) Vital Signs: Last Vital Signs Temp 98.0 F 06/01/16 08:00 Pulse 96 06/01/16 08:00 Resp 18 06/01/16 08:00 BP 123/94 06/01/16 08:00 Pulse Ox 96 06/01/16 08:00 Heart Sounds: S1 & S2 (Cardiac auscultation unchanged lungs bilateral air entry and no pedal edema.) - Assessment/Plan (1) Altered mental status Acute R41.82 - ALTERED MENTAL STATUS, UNSPECIFIED Present on Admission: Yes Comment/Plan: I reviewed the neurologist consultation note. Patient is off Eliquis as there is a preparation for spinal tap. This is being discussed with the Neurology and the patient and the patient's daughter. My recommendation is that the patient be at least on a coated baby aspirin 81 mg as soon as possible. I will leave this up to Neurology and Internal Medicine. Also before initiating aspirin the abnormal findings on the brain scan such as petechial hemorrhages will also need to be addressed and the appropriateness of anticoagulation will need to be assessed by Neurology. We will DC patient from our followup. Please do not hesitate to call if there are any questions about this question patient's cardiovascular management. (2) CHF (congestive heart failure) Acute I50.9 - HEART FAILURE, UNSPECIFIED combined acute on chronic I50.43 - Acute on chronic combined systolic ( congestive) and diastolic (congestive) heart failure Comment/Plan: Stable at this time and she will need to follow with her primary care physician and geriatric nursing assistant on an outpatient basis. (3) COPD with exacerbation Acute J44.1 - CHRONIC OBSTRUCTIVE PULMONARY DISEASE W (ACUTE) EXACERBATION Present on Admission: Yes Comment/Plan: This has improved significantly. (4) Tobacco abuse Acute Z72.0 - TOBACCO USE Present on Admission: Yes Comment/Plan: Cessation counseled again. (5) Atrial fibrillation with RVR Acute I48.91 - UNSPECIFIED ATRIAL FIBRILLATION Comment/Plan: As mentioned above. Long-term the patient needs to be on aspirin full strength. She is not a candidate for anticoagulation in my opinion due to being non reliable, I am not sure about her gait and the fact that she is not compliant with medical therapy. However these issues must be discussed by her with her long-term providers including clerk supervisor and geriatric nursing assistant on an outpatient basis. (6) Essential hypertension Acute I10 - ESSENTIAL (PRIMARY) HYPERTENSION Comment/Plan: Blood pressure is stable (7) Coronary artery disease Chronic I25.10 - ATHSCL HEART DISEASE OF [place] CORONARY ARTERY W/O ANG PCTRS [place] coronary artery [place] heart Comment/Plan: Coronary artery disease clinically stable
[2016-06-01] MEDS: ACETAMINOPHEN 325 MG/TAB TABLET PO PRN (11:16)
[2016-06-01] MEDS: NICOTINE 21 MG PATCH TOP SCH (14:01)
--- NOTE | 2016-06-01 15:54 | PCM.GIPROG ---
Progress Note (GI) Chief Complaint: Patient feels much better today. She has been able to tolerate some p.o.. Family is at the bedside. She still has some nausea but no vomiting. She has some epigastric discomfort. She denies having any fever or chills. Neurology consultation was also noted. I have discussed with Dr. Smith - Physical Exam Vital Signs: Temperature: 98.2 F (06/01/16 10:48) HR: 96 (06/01/16 14:00) RR: 18 (06/01/16 10:48) BP: 121/76 (06/01/16 10:48) Pulse Ox: 93 (06/01/16 10:48) General: Alert, Oriented x3, Cooperative, No acute distress HEENT: Normal, Other (No Jaundice). negative: Pallor Cardiovascular: Normal S1, Normal S2, Other (No S3 or S4.). negative: No murmurs Gastrointestinal: Soft, Bowel Sounds (Normal), Other (No ascites.). negative: Tender, Hepatosplenomegaly Extremities: Normal pulses. 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 No history of psychiatric illness. Seems more like toxic metabolic encephalopathy that will require some time to improve. (3) CHF (congestive heart failure) Acute I50.9 - HEART FAILURE, UNSPECIFIED combined acute on chronic I50.43 - Acute on chronic combined systolic ( congestive) and diastolic (congestive) heart failure (4) COPD with exacerbation Acute J44.1 - CHRONIC OBSTRUCTIVE PULMONARY DISEASE W (ACUTE) EXACERBATION Present on Admission: Yes Comment: supplemental oxygen, nebulized medications, steroids. (5) Respiratory failure Acute J96.90 - RESPIRATORY FAILURE, UNSP, UNSP W HYPOXIA OR HYPERCAPNIA acute hypoxia and hypercapnia J96.01 - Acute respiratory failure with hypoxia; J96.02 - Acute respiratory failure with hypercapnia (6) Tobacco abuse Acute Z72.0 - TOBACCO USE Present on Admission: Yes Comment: nicotine patch for now. When able, offer tobacco abiuse counselling. (7) Atrial fibrillation with RVR Acute I48.91 - UNSPECIFIED ATRIAL FIBRILLATION Comment: Continue present care. (8) Epigastric pain Acute R10.13 - EPIGASTRIC PAIN (9) Diarrhea Acute R19.7 - DIARRHEA, UNSPECIFIED Plan: 1. continue IV Protonix 2. EGD in a.m.. 3. Continue current therapy 4. Proceed with CT scan of the abdomen and pelvis - this will be ordered by Dr. Smith. I have discussed the above with Dr. Smith this morning 5. I have discussed the above with the patient and patient's family.
[2016-06-01] MEDS: Levofloxacin 500 mg/100 ml D5W 500 MG/100 ML RTU IV SCH (17:13)
[2016-06-01 17:22] LABS: TUBE# #1
[2016-06-01 17:23] LABS: # SQ mm COUNTED 9; CSF RBC COUNT 3 CU mm (<1); CSF WBC COUNT 3 CU mm (0-5); DILUTION FACTOR 1x; RBC COUNT #1 3; RBC COUNT #2 2; RBC COUNT AVERAGE 2.5; RBC COUNT DIFFERENCE 1; WBC COUNT #1 2; WBC COUNT #2 3; WBC COUNT AVERAGE 2.5; WBC COUNT DIFFERENCE 1
--- NOTE | 2016-06-01 17:42 | GENMEDPROG ---
Subjective Note: At the daughter's request I called for site which was holding 40 patient's in the emergency department, I called back to switch remained on Code [place] and then I called [facility] who was able to accept the patient in transfer. I spent 3 hours arranging transfer for the patient. After transfer was arranged in the hospital called for reported was arranging ambulance to [place] the patient the patient's daughter stated that she did not wish for her mother to transfer. She refused transport. Patient states she is improving today she feels less confused. I have asked nursing to monitor her p.o. intake. I have asked him to collect any diarrhea she may have. She apparently has not had any diarrhea since admission although has had for a year prior to admission. The patient is scheduled for a lumbar puncture this afternoon. Studies have been ordered. Dr. Pedro and Dr. Solis as assistance very much appreciated. Notes Reviewed: Yes Events from last night noted and discussed with Clinical Staff Current Medication List: Reviewed Currently: Reports: Wheezing, SOB DVT Prophylaxis: Yes - Physical Examination Vital Signs and I&O: Last Vital Signs Temp 98.4 F 06/01/16 16:58 Pulse 96 06/01/16 16:58 Resp 18 06/01/16 16:58 BP 128/104 H 06/01/16 16:58 Pulse Ox 93 06/01/16 16:58 Oxygen Pulse Oxygen Saturation 93 O2 Device Room Air Oxygen Flow Rate 2 Fraction of Inspired Oxygen ( 35 FIO2) Intake & Output 05/29/16 05/30/16 05/31/16 06/01/16 23:59 23:59 23:59 23:59 Intake Total 300 1041 1381 1164 Output Total 1350 2825 500 1100 Balance -1050 -1784 881 64 Patient's weight 68.311 kg 67.857 kg 67.585 kg 64.455 kg General: Alert, Oriented x3, Cooperative, No acute distress HEENT: Normal (Normocephalic, atraumatic;EOMI.Sclera white, Nares patent, without discharge or bleeding. No oropharyngeal lesions or erythema. Mucous membranes are dry.) Lymphatics: Normal (No lymph node swelling or pain.) Respiratory: Normal - CTA (Clear to auscultation bilaterally. No wheezing, rales , rhonchi. Chest wall movements are symmetric. No use of accessory muscles to breathe.) Cardiovascular: Regular rate and rhythm (No bradycardia or tachycardia), Normal S1, No Gallops,Rubs/Murmurs, Normal S2, Good Pedal Pulses (DP pulses 2+ bilaterally) GI: Normal bowel sounds Extremities/Musculoskeletal: Normal pulses. 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 Neurology has been consulted. She appears to be tolerating treatment well. Will continue to monitor. Await results of viral studies from lumbar puncture. (2) Respiratory failure with hypoxia Acute J96.91 - RESPIRATORY FAILURE, UNSPECIFIED WITH HYPOXIA Qualifiers: Chronicity: acute on chronic Qualified Code(s): J96.21 - Acute and chronic respiratory failure with hypoxia Comment/Plan: Significantly improved. Wean oxygen as tolerated. (3) Altered mental status Acute R41.82 - ALTERED MENTAL STATUS, UNSPECIFIED Comment/Plan: Possibly related to herpes viral encephalitis. If studies negative with suspect a stroke. Appreciate Dr. Pedro assistance. (4) COPD with exacerbation Acute J44.1 - CHRONIC OBSTRUCTIVE PULMONARY DISEASE W (ACUTE) EXACERBATION Comment/Plan: supplemental oxygen, nebulized medications, steroids. (5) Acute on chronic systolic and diastolic heart failure, NYHA class 1 Acute I50.43 - ACUTE ON CHRONIC COMBINED SYSTOLIC AND DIASTOLIC HRT FAIL Comment/Plan: Echocardiogram shows EF of 40-45%. Continue present management. Cardiology has been consulted. (6) Atrial fibrillation with RVR Acute I48.91 - UNSPECIFIED ATRIAL FIBRILLATION Comment/Plan: Continue present care. Cardiology help appreciated. (7) Essential hypertension Acute I10 - ESSENTIAL (PRIMARY) HYPERTENSION Comment/Plan: Use home meds when she is able to take po. (8) Coronary artery disease Chronic I25.10 - ATHSCL HEART DISEASE OF [place] CORONARY ARTERY W/O ANG PCTRS Qualifiers: Coronary Disease-Associated Artery/Lesion type: [place] coronary artery [place] vs. transplanted heart: [place] heart Comment/Plan: check cardiac enzymes. use home meds when able. (9) Tobacco abuse Acute Z72.0 - TOBACCO USE Comment/Plan: Patient counseled regarding smoking cessation. (10) Abdominal pain Acute R10.9 - UNSPECIFIED ABDOMINAL PAIN Qualifiers: Abdominal location: epigastric Qualified Code(s): R10.13 - Epigastric pain Comment/Plan: For EGD in a.m.. (11) Diarrhea Acute R19.7 - DIARRHEA, UNSPECIFIED Qualifiers: Diarrhea type: unspecified type Qualified Code(s): R19.7 - Diarrhea, unspecified Comment/Plan: Will check stool studies if patient has any further episodes of diarrhea. (12) Nausea and vomiting Acute R11.2 - NAUSEA WITH VOMITING, UNSPECIFIED Qualifiers: Vomiting Intractability: unspecified Comment/Plan: It is very difficult to discern the nature of her vomiting. Family states that she vomits after she eats. Dr. Solis will evaluate the patient. She may require esophagogastroduodenoscopies. Gallbladder ultrasound revealed a polyp. HIDA scan was negative. Await further evaluation from Dr. Solis. - Plan Continue evaluation await LP results. Disposition Plan: Likely home when improved. Case Care Discussed with: Patient, Consultants, Family, Nursing Staff Education/Counseling Given To: Patient, Family Member Education/Counseling Given Regarding: Diagnosis, Treatment, Prognosis, Follow Up , Disposition Plan Total Time: 225 minutes. Critical Care: Yes [place] Time (>50% in counseling/coordination): No
[2016-06-01] MEDS: MORPHINE 2 MG/ML INJECTION IV PRN (18:00)
--- NOTE | 2016-06-01 21:07 | PCM.NEUPN ---
- Physical Exam Vital Signs: Initial Vitals Temperature 97.4 F L 05/29/16 10:50 Pulse Rate 95 05/29/16 10:50 Respiratory Rate 22 05/29/16 10:50 Blood Pressure 156/103 H 05/29/16 10:50 Pulse Oxygen Saturation 78 L 05/29/16 10:50 Constitutional: No apparent distress - Mental Status Orientation: Time, Person, Place Speech: Fluent, Clear Coginitive: Normal Motor Function: Normal Affect: Normal Thought: Coherent (Still occasional bizarre statements but family says she is significantly better today) Perception: Normal - Lab Results Laboratory Tests 06/01/16 06/01/16 06/01/16 16:36 16:36 16:36 CSF Tube Number #1 CSF WBC 3 CSF RBC 3 H CSF Glucose 98 H CSF Total Protein 48.0 CSF Cryptococcus Ag Pending HSV I DNA PCR HSV II DNA PCR 06/01/16 16:36 CSF Tube Number CSF WBC CSF RBC CSF Glucose CSF Total Protein CSF Cryptococcus Ag HSV I DNA PCR Pending HSV II DNA PCR Pending - Assessment/Plan (1) Altered mental status R41.82 - ALTERED MENTAL STATUS, UNSPECIFIED Acute Present on Admission: Yes Comment: Pt significantly better today per family. LP done today and pt tolerated it well. Early results show only 3 WBC and 3 RBC which is normal and not what is expected with a herpes encephalitis. We'll wait for the PCR results but I'm doubtful that this is HSV encephalitis. Most likely etiology now is stroke. Will start 81mg asa tomorrow morning. Pending clinical progression and results of CSF analysis, will consider repeat MRI on Monday. If this is stroke and there is no more hemorrhage than the petechial lesion seen on MRI then I would resume eliquis in a couple of days. Case Care Discussed with: Patient, Consultants, Family, Nursing Staff Plan: 1. F/u on CSF results 2. Start 81mg aspirin tomorrow. 3. Consider repeat MRI on Monday 4. Consider restarting eliquis in a couple of days if no new hemorrhage on MRI and HSV is negative. 5. ST, OT
[2016-06-02] MEDS: ACYCLOVIR IV SCH ×3 (01:19→18:36)
[2016-06-02] MEDS: NS IV SCH ×3 (01:19→18:36)
[2016-06-02] MEDS: MORPHINE 2 MG/ML INJECTION IV PRN (01:20)
[2016-06-02] MEDS: Albuterol/Ipratropium Neb 3 ML NEB NEB SCH ×4 (01:25→20:11)
[2016-06-02 05:03] LABS: AUTOMATED BASOPHIL 0.8 % (0-2); AUTOMATED EOSINOPHIL 0.3 % (0-5); AUTOMATED LYMPH 17.4 % (17-44); AUTOMATED MONOCYTE 8.5 % (3-10); MPV 11.1 fL (7.4-10.4)
[2016-06-02] MEDS: METOPROLOL 5 MG/5 ML SDV IV SCH ×3 (05:05→18:35)
[2016-06-02 05:07] LABS: BLOOD UREA NITROGEN 17 MG/DL (7-17); CALCIUM 9.3 MG/DL (8.4-10.2); CALCULATED OSMOLALITY 266 MOs/Kg (270-290); CHLORIDE 97 mEq/L (98-107); GLUCOSE 106 MG/DL (70-99); SODIUM LEVEL 137 mEq/L (137-146)
--- NOTE | 2016-06-02 07:46 | DIRPT ---
CLINICAL DATA: 65-year-old who presented with acute mental status changes who had an MRI of the brain which questioned the possibility of herpes encephalitis. EXAM: DIAGNOSTIC LUMBAR PUNCTURE UNDER FLUOROSCOPIC GUIDANCE FLUOROSCOPY TIME: Radiation Exposure Index (as provided by the fluoroscopic device): 5.14 mGy PROCEDURE: Informed consent was obtained from the patient prior to the procedure, including potential complications of headache, allergy, and pain. With the patient prone, the lower back was prepped with Betadine. 1% Lidocaine was used for local anesthesia. Lumbar puncture was performed at the L3-4 level using a 22 gauge needle with return of clear, colorless CSF with an opening pressure of 15 cm water. 6 ml of CSF were obtained for laboratory studies. The patient tolerated the procedure well and there were no apparent complications. IMPRESSION: Uncomplicated fluoroscopically guided diagnostic lumbar puncture. Electronically Signed By: Alverto Cervantes M.D. On: 06/02/2016 07:44
[2016-06-02] MEDS ORDERED: NS 1,000 ML IV ONE (09:45)
--- NOTE | 2016-06-02 11:07 | HIM.ANES ---
Anesthesia Evaluation & Plan Diagnoses: epigastric pain Consented Procedure: EGD - Focused Review of Systems Cardiac History: Yes: Hx Hypertension, Hx Angina, Hx Cardiac Catheterization ( stents x 2), Hx Coronary Stent (x2), Hx Afib/Aflutter, Hx Cardiac Disorders, Hx Congestive Heart Failure HEENT: Yes: Removable Dental Work, Hx Vision Problem (reading glasses), Hx Ear Problem (Left ear drum busted [place]) Respiratory: Yes: Hx Chronic Obstructive Pulmonary Disease (COPD), Hx Recent Cold/Flu (1 week ago stomach virus), Hx Pneumonia (Had pneumonia within the last 2 years.) Gastrointestinal: No: Hx Gastrointestinal Disorders Neurological/Musculoskeletal: No: Hx Dementia, Hx Seizures, Hx Neurological Disorders Other Neurological Problems: confused on arrival, 02 was low Psychological: No Hx Depression, No Hx Mental/Emotional Disorders Endocrine: No: Hx Hypothyroidism Blood/Autoimmune: No: Hx Blood Transfusions, Hx Anemia, Hx AIDS, Hx Hepatitis (type) Smoking Status: Heavy tobacco smoker (5 or more cigarettes/day or daily pipe/ cigar) Past Social History: Denies: Alcohol Use, Cocaine Use, Heroin Use, Marijuana Use , Substance Use Disorder - Focused Physical Exam NPO since: after Midnight Mallampati: Class II Thyromental Distance: Greater than 3 Neck: Full Range of Motion Cardiovascular/Chest: Normal (RRR no mumurs or rubs.) Respiratory: Lungs clear. negative: Rhonchi, Wheezing Any problems with anesthesia, including nausea and vomiting?: No (na) Any relatives with a history of Malignant Hyperthermia?: No Does patient have a history of Malignant Hyperthermia?: No Beta Yovanny given (if appropriate): Yes Does the patient have a history of Motion Sickness-: No Other: Problem List Problem Status Onset Altered mental status Acute CHF (congestive heart failure) Acute COPD with exacerbation Acute Diarrhea Acute Epigastric pain Acute Herpes simplex encephalitis Acute Respiratory failure Acute Respiratory failure with hypoxia Acute Tobacco abuse Acute Acute on chronic diastolic heart failure Acute Acute on chronic systolic and diastolic heart failure, NYHA class 1 Acute Atrial fibrillation with RVR Acute Essential hypertension Acute Coronary artery disease Chronic PT/PTT/INR/ PT 11.2 SEC (9.2-11.2) 05/29/16 10:55 INR 1.1 05/29/16 10:55 APTT 24.6 SEC (22-35) 05/29/16 10:55 CBC/BMP/Other 06/02/16 04:20 06/02/16 04:20 Allergies Allergy/AdvReac Type Severity Reaction Status Date / Time lorazepam [From Ativan] Allergy Agitation Verified 05/29/16 14:18 Naunyza-Exu-Ixg Reductase Allergy Nausea/Vomi Verified 05/30/16 01:37 Inhibitor ting Home Medications Medication Instructions Recorded Last Taken Type Carvedilol [Coreg] 6.25 mg PO BID 10/28/14 05/28/16 History Lisinopril [Zestril] 20 mg PO DAILY 10/28/14 05/28/16 History Aspirin (Enteric Coated) [Halfprin] 81 mg PO DAILYWM #100 tablet 10/30/14 Rx Apixaban [Eliquis] 2.5 mg PO BID 05/29/16 05/28/16 History Furosemide [Lasix] 20 mg PO DAILY 05/29/16 05/28/16 History POTASSIUM CHLORIDE Tablet [K-DUR 20 meq PO BID 05/29/16 05/28/16 History 20 mEq Tablet*] Height and Weight Patient's height 5 ft 5 in Patient's weight 65.726 kg Weight (Calculated Kilograms) 65.726 BMI 24.7 Vital Signs Temperature 96.3 F L 06/02/16 09:45 Pulse Rate 113 06/02/16 09:45 Respiratory Rate 18 06/02/16 09:45 Blood Pressure 136/106 H 06/02/16 09:45 Pulse Oxygen Saturation 94 06/02/16 09:45 METS - Level of Activity: Eating, Dressing, walking around house, dishwashing - Anesthetic Plan Anesthesia Type: General ASA Class: 3 -: I have examined this patient and reviewed the medical record. The patient has been assessed prior to anesthesia. Risks and benefits of anesthesia and anesthetic technique options have been discussed and all questions answered. The patient accepts the risk and desires me to proceed with the planned anesthetic.
[2016-06-02] MEDS ORDERED: FLUCONAZOLE 100 MG TAB PO ONE (13:00)
[2016-06-02] MEDS: ASPIRIN (CHEWABLE) 81 MG TAB PO SCH (13:33)
[2016-06-02] MEDS: POTASSIUM CHLORIDE 20 MEQ TAB PO SCH ×2 (13:33→18:35)
[2016-06-02] MEDS: NICOTINE 21 MG PATCH TOP SCH (13:34)
[2016-06-02] MEDS: FUROSEMIDE 40 MG/4 ML VIAL IV SCH ×2 (13:37→19:45)
--- NOTE | 2016-06-02 17:09 | SC.ANESPOS ---
Post-Anesthesia Note LOC: Fully Awake Post-Anesthesia Assessment: Awake, Returned to Baseline, Hemodynamically Stable , Pain Control Adequate Phase I & II Recovery Complete: Yes Apparent Anesthesia Complication: No : N - Vital Signs Blood Pressure: 113/81 Pulse: 92 Resp Rate: 17 O2 Sat: 93 Temp: 98.3 F
--- NOTE | 2016-06-02 17:27 | GENMEDPROG ---
Subjective Note: For viral titers pending patient underwent EGD and found to have a ulcer. She is improving. She is tolerating p.o.. Notes Reviewed: Yes Events from last night noted and discussed with Clinical Staff Current Medication List: Reviewed Currently: Reports: Wheezing, SOB DVT Prophylaxis: Yes - Physical Examination Vital Signs and I&O: Last Vital Signs Temp 98.3 F 06/02/16 17:08 Pulse 92 06/02/16 17:08 Resp 17 06/02/16 17:08 BP 113/81 06/02/16 17:08 Pulse Ox 93 06/02/16 17:08 Oxygen Pulse Oxygen Saturation 93 O2 Device Room Air Oxygen Flow Rate 2 Fraction of Inspired Oxygen ( 35 FIO2) Intake & Output 05/30/16 05/31/16 06/01/16 06/02/16 23:59 23:59 23:59 23:59 Intake Total 1041 1381 1284 990 Output Total 2825 500 2400 2050 Balance -1784 881 1116 1060 Patient's weight 67.857 kg 67.585 kg 64.455 kg 65.726 kg General: Alert, Oriented x3, Cooperative, No acute distress HEENT: Normal (Normocephalic, atraumatic;EOMI.Sclera white, Nares patent, without discharge or bleeding. No oropharyngeal lesions or erythema. Mucous membranes are dry.) Neck: Non-tender, Full range of motion, Normal Trachea alignment, Normal inspection (No cervical lymphadenopathy. No supraclavicular lymphadenopathy.), No Masses palpable, Supple Respiratory: Normal - CTA (Clear to auscultation bilaterally. No wheezing, rales , rhonchi. Chest wall movements are symmetric. No use of accessory muscles to breathe.) Cardiovascular: Regular rate and rhythm (No bradycardia or tachycardia), Normal S1, No Gallops,Rubs/Murmurs, Normal S2, Good Pedal Pulses (DP pulses 2+ bilaterally) GI: Normal bowel sounds (normal active sounds), Soft (non-distended), Non tender , No hepatospenomegaly, No masses Extremities/Musculoskeletal: Normal pulses. negative: Swelling, Edema Skin: Warm,Dry and Intact Neurological: Strength at 5/5 X4 ext (Motor 5/5 throughout.), Normal tone, Cranial nerves 3-12 NL ( 2-12 grossly intact.) Psych/Mental Status: Appropriate, Normal Affect Lab/DI/Studies Reviewed: Abnormal Lab Results 06/01/16 06/02/16 06/02/16 16:36 04:20 04:20 MPV 11.1 H Chloride 97 L Estimated GFR (MDRD) 55 L Glucose 106 H Calculated Osmolality 266 L CSF Glucose 98 H - Assessment (1) Herpes simplex encephalitis Suspected B00.4 - HERPESVIRAL ENCEPHALITIS Comment/Plan: Await results of viral studies from lumbar puncture. Continue IV acyclovir. (2) Respiratory failure with hypoxia Acute J96.91 - RESPIRATORY FAILURE, UNSPECIFIED WITH HYPOXIA Qualifiers: Chronicity: acute on chronic Qualified Code(s): J96.21 - Acute and chronic respiratory failure with hypoxia Comment/Plan: Significantly improved. Wean oxygen as tolerated. (3) Altered mental status Acute R41.82 - ALTERED MENTAL STATUS, UNSPECIFIED Comment/Plan: Possibly related to herpes viral encephalitis. If studies negative with suspect a stroke. Appreciate Dr. Pedro assistance. (4) COPD with exacerbation Acute J44.1 - CHRONIC OBSTRUCTIVE PULMONARY DISEASE W (ACUTE) EXACERBATION Comment/Plan: supplemental oxygen, nebulized medications, steroids. (5) Acute on chronic systolic and diastolic heart failure, NYHA class 1 Acute I50.43 - ACUTE ON CHRONIC COMBINED SYSTOLIC AND DIASTOLIC HRT FAIL Comment/Plan: Echocardiogram shows EF of 40-45%. Continue present management. Cardiology has been consulted. (6) Atrial fibrillation with RVR Acute I48.91 - UNSPECIFIED ATRIAL FIBRILLATION Comment/Plan: Continue present care. Cardiology help appreciated. (7) Essential hypertension Acute I10 - ESSENTIAL (PRIMARY) HYPERTENSION Comment/Plan: Use home meds when she is able to take po. (8) Coronary artery disease Chronic I25.10 - ATHSCL HEART DISEASE OF [place] CORONARY ARTERY W/O ANG PCTRS Qualifiers: Coronary Disease-Associated Artery/Lesion type: [place] coronary artery [place] vs. transplanted heart: [place] heart Comment/Plan: check cardiac enzymes. use home meds when able. (9) Tobacco abuse Acute Z72.0 - TOBACCO USE Comment/Plan: Patient counseled regarding smoking cessation. (10) Abdominal pain Acute R10.9 - UNSPECIFIED ABDOMINAL PAIN Qualifiers: Abdominal location: epigastric Qualified Code(s): R10.13 - Epigastric pain Comment/Plan: For EGD in a.m.. (11) Diarrhea Acute R19.7 - DIARRHEA, UNSPECIFIED Qualifiers: Diarrhea type: unspecified type Qualified Code(s): R19.7 - Diarrhea, unspecified Comment/Plan: Will check stool studies if patient has any further episodes of diarrhea. Patient has adamantly refused a colonoscopy despite Dr. Solis does suggestion. (12) Nausea and vomiting Acute R11.2 - NAUSEA WITH VOMITING, UNSPECIFIED Qualifiers: Vomiting Intractability: unspecified Comment/Plan: Likely related to soft jaundice and duodenal ulcer. Continue proton pump inhibitor and fluconazole. (13) Duodenal ulcer Acute K26.9 - DUODENAL ULCER, UNSP ACUTE OR CHRONIC, W/O HEMOR OR PERF Comment/Plan: Proton pump inhibitor twice daily. 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 - Plan Continue evaluation await LP results. Disposition Plan: Likely home when improved. Case Care Discussed with: Patient, Consultants, Family, Nursing Staff Education/Counseling Given To: Patient, Family Member Education/Counseling Given Regarding: Diagnosis, Treatment, Prognosis, Follow Up , Disposition Plan Total Time: 50 minutes. Critical Care: No Couseling Time (>50% in counseling/coordination): No
--- NOTE | 2016-06-02 17:53 | PCM.NEUPN ---
- Physical Exam Vital Signs: Initial Vitals Temperature 97.4 F L 05/29/16 10:50 Pulse Rate 95 05/29/16 10:50 Respiratory Rate 22 05/29/16 10:50 Blood Pressure 156/103 H 05/29/16 10:50 Pulse Oxygen Saturation 78 L 05/29/16 10:50 Constitutional: No apparent distress, Alert - Mental Status Orientation: Time, Person, Place Speech: Fluent, Clear Coginitive: Normal, Follows Commands (but still with bizarre statements at times. Pt estimates she is at 80% of normal, daughter estimates 60%.) Motor Function: Normal Affect: Calm, Other (bizarre at times.) Thought: Rambling Conversation (mildly) Perception: Normal - Sensory Sensory: Normal - Lab Results Laboratory Tests 06/01/16 06/02/16 06/02/16 16:36 04:20 04:20 WBC 10.4 Hgb 15.6 MCV 88 Plt Count 155 Neut % (Auto) 73.0 Lymph % (Auto) 17.4 Sodium 137 Potassium 4.0 Chloride 97 L Carbon Dioxide 31 Anion Gap 13 BUN 17 Creatinine 1.00 Estimated GFR (MDRD) 55 L Glucose 106 H Calculated Osmolality 266 L Calcium 9.3 Magnesium 2.00 HSV I DNA PCR Pending HSV II DNA PCR Pending - Assessment/Plan (1) Altered mental status R41.82 - ALTERED MENTAL STATUS, UNSPECIFIED Acute Present on Admission: Yes Comment: Pt just back from endoscopy where they found small ulcers. HSV PCR is not back yet. Pt improved although daughter feels she is not much better compared to yesterday but agrees she is much better than 2 days ago. With the CSF showing no pleocytosis and no significant RBCs, I am leaning towards a stroke diagnosis. Will wait until her HSV tests are back before getting carotid dopplers. Will recheck an MRI in the morning to check for any changes in the lesion that may clarify the type of lesion. Will get ST involved for speech and cognition. Case Care Discussed with: Patient, Family, Nursing Staff Plan: 1. MRI tomorrow. 2. Follow up HSV PCR. 3. Consider Carotid dopplers if PCR is negative for HSV. 4. ST for speech and cognition.
--- NOTE | 2016-06-02 17:56 | HIMOPRPT ---
DATE OF PROCEDURE: 06/02/16 PROCEDURE: EGD with biopsies INDICATIONS: 1. Epigastric pain. 2. History of nausea/vomiting CONSENT: The benefits, risks, and alternatives to the procedure were discussed. The risks of bleeding, perforation and aspiration were discussed at less than 1% . Informed consent was obtained from the patient. MEDICATIONS: Propofol per Anesthesia DESCRIPTION OF PROCEDURE: The patient was placed in the left lateral position. The Olympus video endoscope GIFH-180 was passed with ease under direct visualization to the second portion of the duodenum. The esophagus, stomach, and duodenum were examined on insertion and withdrawal of the scope. At least two passes were made. FINDINGS: ESOPHAGUS: There is evidence of mild Fabiola esophagitis involving the proximal and mid esophagus. Photo documentation obtained. Multiple brushings were obtained and sent for histopathologic examination. The Z-line was well defined at 36 cm. Lower end esophagus also examined the narrow band imaging STOMACH: There was mild gastritis in form of erythema involving the antrum. Multiple biopsies were obtained from the antrum for ELKIN-testing. The retroflexed examination of the cardia was normal. The gastric mucosa was otherwise unremarkable. DUODENUM: Easily intubated. 4-5 superficial duodenal ulcers were noted measuring approximately 8 mm with clean whitish base in the 1st portion of the duodenal. Photo documentation obtained. Multiple biopsies were obtained from the 2nd portion of the duodenal and sent for histopathologic examination. IMPRESSION: 1. Superficial duodenal ulcers 2. Mild gastritis. 3. Mild Fabiola esophagitis PLAN: 1. Follow biopsies, brushings and ELKIN-test. Will treat if positive. 2. Continue Protonix 40 mg p.o. once a day 3. Avoid nonsteroidals 4. Can advance diet. 5. Would recommend starting Diflucan 200 mg p.o. x1 followed by 100 mg p.o. once a day for next 5 days. 6. I have discussed extensively with the patient regarding screening colonoscopy as an outpatient. She adamantly refuses to have any colonoscopy performed. Will discuss above with Dr. Smith. Addendum: I have also instructed pathology to stain for HSV.
[2016-06-03] MEDS: METOPROLOL 5 MG/5 ML SDV IV SCH ×3 (01:29→13:04)
[2016-06-03] MEDS: Albuterol/Ipratropium Neb 3 ML NEB NEB SCH ×3 (01:34→14:43)
[2016-06-03] MEDS: NS IV SCH ×2 (03:14→10:20)
[2016-06-03] MEDS: ACYCLOVIR IV SCH ×2 (03:14→10:20)
[2016-06-03] MEDS: D5-1/2NS/KCL 20 mEq 1,000 ML IV SCH (03:14)
[2016-06-03 04:57] LABS: AUTOMATED BASOPHIL 0.3 % (0-2); AUTOMATED EOSINOPHIL 0.6 % (0-5); AUTOMATED LYMPH 20.6 % (17-44); AUTOMATED MONOCYTE 8.1 % (3-10); AUTOMATED NEUTROPHIL 70.4 % (45-76); MPV 10.6 fL (7.4-10.4)
[2016-06-03 05:06] LABS: BLOOD UREA NITROGEN 20 MG/DL (7-17); CALCIUM 8.7 MG/DL (8.4-10.2); CALCULATED OSMOLALITY 267 MOs/Kg (270-290); CHLORIDE 101 mEq/L (98-107); GLUCOSE 105 MG/DL (70-99); SODIUM LEVEL 137 mEq/L (137-146)
[2016-06-03] MEDS: ENOXAPARIN 80 MG/0.8 ML PFS SQ SCH (05:19)
[2016-06-03 06:23] LABS: CRYPTOCOCCAL CULTURE Not Indicated (.)
[2016-06-03] MEDS: POTASSIUM CHLORIDE 20 MEQ TAB PO SCH (08:08)
[2016-06-03] MEDS: ASPIRIN (CHEWABLE) 81 MG TAB PO SCH (08:08)
[2016-06-03] MEDS ORDERED: FLUCONAZOLE 100 MG TAB PO SCH (09:00)
--- NOTE | 2016-06-03 11:07 | DIRPT ---
CLINICAL DATA: Follow-up abnormal --- the previous abnormal MRI. EXAM: MRI HEAD WITHOUT AND WITH CONTRAST TECHNIQUE: Multiplanar, multiecho pulse sequences of the brain and surrounding structures were obtained without and with intravenous contrast. CONTRAST: 13 mL MultiHance COMPARISON: MRI brain 05/31/2016. FINDINGS: Diffusion abnormalities within the medial left temporal lobe and hippocampus are stable. The ADC map shows restricted diffusion and a posterior hippocampus. Diffusion signal changes are present to the anterior hippocampus. There is asymmetric T2 signal change within the medial left temporal lobe and hippocampus. This is also similar to the prior study. More subtle changes may be present on the right, also stable. Focal susceptibility within the left temporal uncus is not evident on today's study. There is no associated enhancement. Moderate to severe diffuse periventricular and subcortical T2 changes bilaterally are stable. No other acute infarct, hemorrhage, or mass lesion is present. 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 A remote lacunar infarct again noted in the right cerebellum. The brainstem is within normal limits. The internal auditory canals are normal. Flow is present in the major intracranial arteries. Globes and orbits are intact. Paranasal sinuses and mastoid air cells are clear. IMPRESSION: 1. Stable T2 and diffusion abnormalities within the medial left temporal lobe involving the hippocampus. The differential diagnosis is the same, including herpes encephalitis, seizures, acute/subacute infarct, or limbic encephalopathy. Herpes is considered less likely without enhancement, but cannot be excluded. 2. Remote medial occipital lobe infarcts. 3. Moderate to severe diffuse white matter disease. This likely reflects the sequela of chronic microvascular ischemia. Electronically Signed By: Isac Zamora M.D. On: 06/03/2016 11:04
[2016-06-03 11:56] VITALS: BP 136/91; TEMP 99.2
[2016-06-03] MEDS: NICOTINE 21 MG PATCH TOP SCH (13:03)
[2016-06-03] MEDS: FUROSEMIDE 40 MG/4 ML VIAL IV SCH (13:04)
[2016-06-03 14:27] VITALS: PULSE 88
--- NOTE | 2016-06-03 14:41 | DIRPT ---
CLINICAL DATA: Stroke EXAM: BILATERAL CAROTID DUPLEX ULTRASOUND TECHNIQUE: Salguero scale imaging, color Doppler and duplex ultrasound were performed of bilateral carotid and vertebral arteries in the neck. COMPARISON: None. FINDINGS: Criteria: Quantification of carotid stenosis is based on velocity parameters that correlate the residual internal carotid diameter with NASCET-based stenosis levels, using the diameter of the distal internal carotid lumen as the denominator for stenosis measurement. The following velocity measurements were obtained: RIGHT ICA: 55 cm/sec CCA: 78 cm/sec SYSTOLIC ICA/CCA RATIO: 0.7 DIASTOLIC ICA/CCA RATIO: 2.0 ECA: 69 cm/sec LEFT ICA: 89 cm/sec CCA: 76 cm/sec SYSTOLIC ICA/CCA RATIO: 1.2 DIASTOLIC ICA/CCA RATIO: 1.5 ECA: 51 cm/sec RIGHT CAROTID ARTERY: Mild calcified plaque in the bulb. Mild tortuosity of the internal carotid. Low resistance internal carotid Doppler pattern. RIGHT VERTEBRAL ARTERY: Antegrade with a normal Doppler pattern. LEFT CAROTID ARTERY: There is moderate mixed plaque in the bulb. Low resistance internal carotid Doppler pattern. LEFT VERTEBRAL ARTERY: Antegrade. Normal Doppler pattern. Additional findings: 2.4 cm irregular and calcified left thyroid nodule is noted. IMPRESSION: Less than 50% stenosis in the right and left internal carotid arteries. 2.4 cm calcified left thyroid nodule. Findings meet consensus criteria for biopsy. Ultrasound-guided fine needle aspiration should be considered, as per the consensus statement: Management of Thyroid Nodules Detected at US: Society of Radiologists in Ultrasound Consensus Conference Statement. Radiology 2005; [id number]. Electronically Signed By: Efe Howell M.D. On: 06/03/2016 14:39
--- NOTE | 2016-06-03 15:06 | PCM.DCS92 ---
- Final/Secondary Discharge Diagnosis (1) CVA (cerebral vascular accident) Acute I63.9 - CEREBRAL INFARCTION, UNSPECIFIED Present on Admission: Yes embolism unspecified Plan/Goal/Comment: Continue aspirin follow up with neurologist. 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 (4) Duodenal ulcer Acute K26.9 - DUODENAL ULCER, UNSP ACUTE OR CHRONIC, W/O HEMOR OR PERF Present on Admission: Yes Comment: Proton pump inhibitor twice daily. Discharge Disposition: Discharge w/ Home Health Discharge Condition: Improved Cognitive Discharge Status: Unimpaired Fuctional Discharge Status: Independent Physician Follow up/Referrals: Anuj Knapp MD [Staff Physician] - One Week Elijah Pedro MD [Staff Physician] - Two Weeks Jaden Solis MD [Staff Provider No Admit] - Two Weeks New Prescriptions: Fluconazole [Diflucan] 100 mg PO DAILY #5 tab Krill Oil/[place]-3/Dha/Epa [Fish Oil with Krill Softgel] 2 each PO TIDAC #120 capsule. Vitamins (Folgard Rx) [Folgard Rx-2.2] 1 cap PO DAILY #60 tab Pantoprazole Sodium [Protonix] 40 mg PO DAILY #30 tab O2 Device: Room Air Diet at Discharge: Heart Healthy, Low Salt, High Fiber Activity: As Tolerated Call Office For: Fever over 101 F Discontinue use of:: Alcohol, All Illegal Substances, All Types of Tobacco - DC Summary Notes Hospital Course Note:: Discharge summary on patient named FRANCISCA REYES admitted to [facility] on 05/29/16 by Laurie Pappas MD. Date of discharge is [] . Patient was initially brought to emergency room on May 29 for evaluation of diminished level responsiveness confusion incoherent speach and hallucinations. Please refer to the admission for further details. ED workup was undertaken patient was found hypoxic with PaO2 42, she was also found confused and disoriented. Supplemental O2 was provided along with nebulized bronchodilators and patient was admitted to monitor bed. 2D echo was performed which showed EF between 40 and 45%.. CT chest was obtained which showed no evidence of PE, cardiomegaly calcified aorta and coronary arteries no acute pulmonary process. Given persistence of altered mentation MRI of the brain was obtained which showed restricted motion diffusion left temporal lobe and hypocampus, distribution raising possibility of herpes encephalitis, this test also showed remote bilateral inferior occipital lobe infarcts with encephalomalacia and chronic white matter disease but no intracranial mass or bleeding. Given results of the MRI patient was started on IV acyclovir and on June 01 LP was performed.. Patient was seen by Neurology. Herpes PCR on the spinal fluid came back negative. Given GI symptoms patient was seen by [employer] operator Dr. Solis and on June 02 patient has undergone upper endoscopy which showed superficial duodenal ulcers mild gastritis and mild Fabiola esophagitis. Treatment with PPI and Diflucan was continued. Based on Neurology recommendation patient was started on aspirin. Her mentation has slowly improved and returned to baseline. Her activity level was advanced, she was seen by PT OT and speech therapy. By the time of discharge patient is able to ambulate freely with no assistance. Carotid Dopplers were obtained and this test showed less than 50% bilateral stenosis. Multiple family members including patient daughter and sister were kept abreast on clinical progression and results of all the testing undertaken during hospital stay. Copies of reports provided the patient and family. Blood cultures and urine cultures and spinal fluid cultures were negative, ELKIN test was negative. Patient family were advised that given negative testing for therapies her symptoms were related to small stroke in temporal lobe area. Given evidence of duodenal ulcer Dr. Solis has recommended to hold off on Eliquis for 4 weeks, continue aspirin enteric-coated 81 mg daily, monitor closely for any signs of bleeding. On June 03 patient was cleared for discharge by neurologist and in clinically stable and improved condition she has been discharged home to the care of [facility] and PCP Total Time: 45 min . Code: 92467 (>30min.) - Physical Exam Vital Signs: Last Vital Signs Temp 99.2 F 06/03/16 11:55 Pulse 88 06/03/16 14:00 Resp 18 06/03/16 11:55 BP 136/91 06/03/16 11:55 Pulse Ox 94 06/03/16 11:55 Oxygen Pulse Oxygen Saturation 94 O2 Device Room Air Oxygen Flow Rate 2 Fraction of Inspired Oxygen ( 35 FIO2) Constitutional: No apparent distress, Alert Oriented to: Time, Person, Place - HEENT Head: Normal Eye: Normal Oropharynx: Normal ENT EAC: Normal TMJ: Normal Nose: No Symptoms Reported. negative: Abrasion - Respiratory/Cardiovascular Respiratory: Normal - CTA (Clear to auscultation bilaterally. No wheezing, rales , rhonchi. Chest wall movements are symmetric. No use of accessory muscles to breathe.), Diminished, Rhonchi Cardiovascular: Normal, Systolic murmur - GI Auscultation: Normal Palpation: Normal Tenderness: Diffuse, Mild Rectal Exam: Deferred - Exam Deferred: Yes - Musculoskeletal Back: Normal, Other (diffusely tender.) Extremities: Normal - Integumentary Skin: Normal, Warm, Dry Lymphatics: Normal (No lymph node swelling or pain.) - Neurologic Memory Impaired: Normal Motor Function: Normal Cerebellar: Ataxia Mood Description: Anxious, Calm, Other (bizarre at times.) Thought: Rambling Conversation (mildly) Perception: Normal - Other Exam Other Exam Findings: Allergies lorazepam [From Ativan] Allergy (Verified 05/29/16 14:18) Agitation Wvluphx-Qke-Plw Reductase Inhibitor Allergy (Verified 05/30/16 01:37) Nausea/Vomiting Last Vital Signs Temp 99.2 F 06/03/16 11:55 Pulse 88 06/03/16 14:00 Resp 18 06/03/16 11:55 BP 136/91 06/03/16 11:55 Pulse Ox 94 06/03/16 11:55 06/03/16 04:15 06/03/16 04:15 Abnormal Lab Results 06/03/16 06/03/16 04:15 04:15 MPV 10.6 H BUN 20 H Estimated GFR (MDRD) 55 L Glucose 105 H Calculated Osmolality 267 L Microbiology 05/29/16 11:06 Blood Blood Culture - Final No growth aerobically or anaerobically at 120 hours. NORMAL VALUE = No growth 05/29/16 10:55 Blood Blood Culture - Final No growth aerobically or anaerobically at 120 hours. NORMAL VALUE = No growth 06/01/16 16:36 Cerebral Spinal Fluid Gram Stain - Final 06/02/16 10:52 Biopsy - Stomach CLOtest - Final 06/03/16 07:45 Stool Stool for WBCs - Final 06/03/16 07:45 Stool Campylobacter Antigen Assay - Final NEGATIVE ("NORMAL" value = "NEGATIVE".) 06/01/16 16:36 Cerebral Spinal Fluid Gram Stain - Final 05/29/16 14:08 Urine - Clean Catch - Midstream Urine Culture - Final No growth <10,00O CFU/ml Microbiology 05/29/16 11:06 Blood Blood Culture - Final No growth aerobically or anaerobically at 120 hours. NORMAL VALUE = No growth 05/29/16 10:55 Blood Blood Culture - Final No growth aerobically or anaerobically at 120 hours. NORMAL VALUE = No growth 06/01/16 16:36 Cerebral Spinal Fluid Gram Stain - Final 06/02/16 10:52 Biopsy - Stomach CLOtest - Final 06/03/16 07:45 Stool Stool for WBCs - Final 06/03/16 07:45 Stool Campylobacter Antigen Assay - Final NEGATIVE ("NORMAL" value = "NEGATIVE".) Patient Name: FRANCISCA REYES LOC: [facility] : 1950 AGE: 65 Order Date:06/03/16 Date of Service: Report # [id number] Ord Physician: Derek Pearson MD Exam # [id number] Emergency Physician: Oscar rBuce DO Exam(s): [id number] US/US CAROTID DUPLEX-BILAT CLINICAL DATA: Stroke EXAM: BILATERAL CAROTID DUPLEX ULTRASOUND TECHNIQUE: Salguero scale imaging, color Doppler and duplex ultrasound were performed of bilateral carotid and vertebral arteries in the neck. COMPARISON: None. FINDINGS: Criteria: Quantification of carotid stenosis is based on velocity parameters that correlate the residual internal carotid diameter with NASCET-based stenosis levels, using the diameter of the distal internal carotid lumen as the denominator for stenosis measurement. The following velocity measurements were obtained: RIGHT ICA: 55 cm/sec CCA: 78 cm/sec SYSTOLIC ICA/CCA RATIO: 0.7 DIASTOLIC ICA/CCA RATIO: 2.0 ECA: 69 cm/sec LEFT ICA: 89 cm/sec CCA: 76 cm/sec SYSTOLIC ICA/CCA RATIO: 1.2 DIASTOLIC ICA/CCA RATIO: 1.5 ECA: 51 cm/sec RIGHT CAROTID ARTERY: Mild calcified plaque in the bulb. Mild tortuosity of the internal carotid. Low resistance internal carotid Doppler pattern. RIGHT VERTEBRAL ARTERY: Antegrade with a normal Doppler pattern. LEFT CAROTID ARTERY: There is moderate mixed plaque in the bulb. Low resistance internal carotid Doppler pattern. LEFT VERTEBRAL ARTERY: Antegrade. Normal Doppler pattern. Additional findings: 2.4 cm irregular and calcified left thyroid nodule is noted. IMPRESSION: Less than 50% stenosis in the right and left internal carotid arteries. 2.4 cm calcified left thyroid nodule. Findings meet consensus criteria for biopsy. Ultrasound-guided fine needle aspiration should be considered, as per the consensus statement: Management of Thyroid Nodules Detected at US: Society of Radiologists in Ultrasound Consensus Conference Statement. Radiology 2005; [id number]. Electronically Signed By: Efe Howell M.D. On: 06/03/2016 14:39 Patient Name: FRANCISCA REYES LOC: [facility] : 1950 AGE: 65 Order Date:06/02/16 Date of Service: Report # [id number] Ord Physician: Elijah Pedro MD Exam # [id number] Emergency Physician: Oscar Bruce DO Exam(s): [id number] MRI/MRI HEAD WITH WITHOUT CM CLINICAL DATA: Follow-up abnormal --- the previous abnormal MRI. EXAM: MRI HEAD WITHOUT AND WITH CONTRAST TECHNIQUE: Multiplanar, multiecho pulse sequences of the brain and surrounding structures were obtained without and with intravenous contrast. CONTRAST: 13 mL MultiHance COMPARISON: MRI brain 05/31/2016. FINDINGS: Diffusion abnormalities within the medial left temporal lobe and hippocampus are stable. The ADC map shows restricted diffusion and a posterior hippocampus. Diffusion signal changes are present to the anterior hippocampus. There is asymmetric T2 signal change within the medial left temporal lobe and hippocampus. This is also similar to the prior study. More subtle changes may be present on the right, also stable. Focal susceptibility within the left temporal uncus is not evident on today's study. There is no associated enhancement. Moderate to severe diffuse periventricular and subcortical T2 changes bilaterally are stable. No other acute infarct, hemorrhage, or mass lesion is present. 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 A remote lacunar infarct again noted in the right cerebellum. The brainstem is within normal limits. The internal auditory canals are normal. Flow is present in the major intracranial arteries. Globes and orbits are intact. Paranasal sinuses and mastoid air cells are clear. IMPRESSION: 1. Stable T2 and diffusion abnormalities within the medial left temporal lobe involving the hippocampus. The differential diagnosis is the same, including herpes encephalitis, seizures, acute/subacute infarct, or limbic encephalopathy. Herpes is considered less likely without enhancement, but cannot be excluded. 2. Remote medial occipital lobe infarcts. 3. Moderate to severe diffuse white matter disease. This likely reflects the sequela of chronic microvascular ischemia. Electronically Signed By: Isac Zamora M.D. On: 06/03/2016 11:04 Electronically Signed By: Isac Zamora MD Electronically Signed Date/Time: 107 Dictate Date/Time: 06/03/16 1057 Technologist: Madhav Garcia Transcribed By: Melva Transcribed Date/Time: 06/03/16 1102
[2016-06-03] MEDS ORDERED: PANTOPRAZOLE 40 MG TAB PO SCH (18:00)
[2016-06-03] MEDS ORDERED: ENOXAPARIN 80 MG/0.8 ML PFS SQ SCH (18:00)
== END 2016-06-03 16:09 | disposition home health service (06) | DRG 64 ==
LOC: ED 10:43 → PCU 14:00
PROVIDERS: ADMIT Family Medicine; ATTEND Hospitalist
PROC: 5A09357 Assistance with Respiratory Ventilation, Less than 24 Consecutive Hours, Continuous Positive Airway Pressure (ICD-10-PCS; principal; 2016-05-29)
PROC: 039B3ZZ Drainage of Right Radial Artery, Percutaneous Approach (ICD-10-PCS; 2016-05-29)
PROC: 009U3ZX Drainage of Spinal Canal, Percutaneous Approach, Diagnostic (ICD-10-PCS; 2016-06-01)
PROC: B01BZZZ Fluoroscopy of Spinal Cord (ICD-10-PCS; 2016-06-01)
PROC: 0DB98ZX Excision of Duodenum, Via Natural or Artificial Opening Endoscopic, Diagnostic (ICD-10-PCS; 2016-06-02)
DX: I63.9 Cerebral infarction, unspecified (principal); J96.21 Acute and chronic respiratory failure with hypoxia; I50.43 Acute on chronic combined systolic (congestive) and diastolic (congestive) heart failure; J44.1 Chronic obstructive pulmonary disease with (acute) exacerbation; K26.9 Duodenal ulcer, unspecified as acute or chronic, without hemorrhage or perforation; B37.81 Candidal esophagitis; I11.0 Hypertensive heart disease with heart failure; I48.91 Unspecified atrial fibrillation; I25.10 Atherosclerotic heart disease of native coronary artery without angina pectoris; F17.210 Nicotine dependence, cigarettes, uncomplicated; Z71.6 Tobacco abuse counseling; Z79.82 Long term (current) use of aspirin; Z79.899 Other long term (current) drug therapy; K21.9 Gastro-esophageal reflux disease without esophagitis; R19.7 Diarrhea, unspecified; E78.00 Pure hypercholesterolemia, unspecified; Z95.5 Presence of coronary angioplasty implant and graft; K29.70 Gastritis, unspecified, without bleeding; Z79.01 Long term (current) use of anticoagulants
CPT/HCPCS: 36415; 36600; 43239; 62270; 70450; 70553; 71010; 71275; 76705; 78226; 80048; 80053; 80307; 81001; 82803; 82945; 83605; 83630; 83735; 83880; 84157; 84443; 84484; 85025; 85610; 85730; 87040; 87045; 87046; 87070; 87081; 87086; 87205; 87427; 87449; 87529; 87899; 88112; 89050; 89051; 90656; 92523; 93005; 93306; 93880; 94640; 94660; 96372; 96374; 96375; 97161; 98960; 99152; 99153; 99285; 99406; A9537; A9577; A9698; J0133; J1650; J1940; J1956; J2270; J2405; J2550; J2930; J3490; J7050; J7070; J7620